=== PATIENT | male | born 1960 | race Caucasian/White ===

== ENCOUNTER → 2017-04-22 | Outpatient (REF) | payer BC, OTHER ==
[2017-04-22 11:35] LABS: ALBUMIN 3.9 GM/DL (3.2-5.2); ALBUMIN/GLOBULIN RATIO 1.05 (1.00-1.93); ALKALINE PHOSPHATASE 75 U/L (45-117); ALT/SGPT 38 U/L (12-78); ANION GAP 6 MEQ/L (8-16); AST/SGOT 20 U/L (15-37); BILIRUBIN,TOTAL 0.6 MG/DL (0.2-1.0); BLOOD UREA NITROGEN 21 MG/DL (7-18); CALCIUM LEVEL 9.4 MG/DL (8.5-10.1); CARBON DIOXIDE LEVEL 33 MEQ/L (21-32); CHLORIDE LEVEL 99 MEQ/L (98-107); CHOLESTEROL LEVEL 249 MG/DL (<200); CREATININE FOR GFR 1.08 MG/DL (0.70-1.30); GLOMERULAR FILTRATION RATE > 60.0 (>56); GLUCOSE, FASTING 263 MG/DL (70-105); POTASSIUM SERUM 3.9 MEQ/L (3.5-5.1); SODIUM LEVEL 138 MEQ/L (136-145); TOTAL PROTEIN 7.6 GM/DL (6.4-8.2); TRIGLYCERIDES LEVEL 446 MG/DL (<150)
== END ==
LOC: M SFHCCLAY 06:37
PROVIDERS: ATTEND Nurse Practitioner
DX: E11.8 Type 2 diabetes mellitus with unspecified complications (principal)

== ENCOUNTER → 2019-05-18 | Outpatient (REF) | payer BC ==
[2019-05-18 12:57] LABS: BLOOD UREA NITROGEN 11 MG/DL (7-18); CALCIUM LEVEL 8.5 MG/DL (8.5-10.1); CARBON DIOXIDE LEVEL 27 MEQ/L (21-32); CHLORIDE LEVEL 106 MEQ/L (98-107); CREATININE FOR GFR 0.91 MG/DL (0.70-1.30); GLOMERULAR FILTRATION RATE > 60.0 (>56); GLUCOSE, FASTING 142 MG/DL (70-100); MAGNESIUM LEVEL 1.6 MG/DL (1.8-2.4); PHOSPHORUS LEVEL 2.7 MG/DL (2.5-4.9); SODIUM LEVEL 143 MEQ/L (136-145)
== END ==
LOC: M LABDRAWC 11:18
PROVIDERS: ATTEND Internal Medicine
DX: Z00.00 Encounter for general adult medical examination without abnormal findings (principal)

== ENCOUNTER → 2019-05-18 | Outpatient (REF) | payer BC ==
[2019-05-18 12:41] LABS: ALBUMIN 2.8 GM/DL (3.2-5.2); ALT/SGPT 47 U/L (12-78); BILIRUBIN,DIRECT < 0.1 MG/DL (0.0-0.2); BILIRUBIN,TOTAL 0.3 MG/DL (0.2-1.0); CHOLESTEROL LEVEL 167 MG/DL (<200); CHOLESTEROL RISK RATIO 3.976 (<5); HDL CHOLESTEROL 42 MG/DL (>40); LDL CHOLESTEROL 92 MG/DL (<100); NON-HDL-C 125 MG/DL; TOTAL PROTEIN 6.9 GM/DL (6.4-8.2); TRIGLYCERIDES LEVEL 164 MG/DL (<150)
[2019-05-18 14:38] LABS: HEMOGLOBIN A1c 14.3 %
== END ==
LOC: M SFHCCLAY 07:06
PROVIDERS: ATTEND Family Medicine
DX: E11.8 Type 2 diabetes mellitus with unspecified complications (principal); E78.5 Hyperlipidemia, unspecified

== ENCOUNTER → 2019-05-24 | Outpatient (REF) | payer BC | LOC: M SMT 13:14 | PROVIDERS: ATTEND Urology | DX: R33.9 Retention of urine, unspecified (principal) ==

== ENCOUNTER → 2019-05-24 | Outpatient (CLI) | payer BC ==
[2019-05-26 00:08] LABS: PSA % FREE 12.4 % (.); PSA FREE 1.15 ng/mL; PSA TOTAL 9.3 ng/mL (0.0-4.0)
== END ==
LOC: M SMT 08:59
PROVIDERS: ATTEND Urology
DX: N40.0 Benign prostatic hyperplasia without lower urinary tract symptoms (principal)

== ENCOUNTER → 2019-06-21 | Outpatient (REF) | payer BC ==
[2019-06-21 11:42] LABS: BLOOD UREA NITROGEN 14 MG/DL (7-18); CALCIUM LEVEL 9.5 MG/DL (8.5-10.1); CARBON DIOXIDE LEVEL 28 MEQ/L (21-32); CHLORIDE LEVEL 107 MEQ/L (98-107); CREATININE FOR GFR 0.87 MG/DL (0.70-1.30); GLOMERULAR FILTRATION RATE > 60.0 (>56); GLUCOSE, FASTING 119 MG/DL (70-100); POTASSIUM SERUM 4.4 MEQ/L (3.5-5.1); SODIUM LEVEL 141 MEQ/L (136-145)
== END ==
LOC: M SFHCCLAY 08:28
PROVIDERS: ATTEND Family Medicine
DX: E11.8 Type 2 diabetes mellitus with unspecified complications (principal)

== ENCOUNTER → 2019-07-04 | Outpatient (CLI) | payer BC ==
--- NOTE | 2019-07-04 13:55 | REP ---
Prostate sonography: History: Elevated PSA. Urinary retention. Sonographic findings: Trans rectal prostate sonography demonstrates unremarkable seminal vesicles. Prostate gland is heterogeneously enlarged with calcifications and cystic changes noted. Glandular dimensions are measured at 5.5 x 4.3 x 6.1 cm with a calculated glandular volume of 76.4 ml. There is a hypoechoic area in the left posterior lateral apex 0.7 x 0.7 x 0.6 cm. Transrectal sonographic guidance is provided to Dr. Woodson who performed trans rectal ultrasound guided needle biopsy procedure . Electronically Signed by Julian Coker MD 07/04/2019 01:46 P
== END ==
LOC: M SMT PRO 08:52
PROVIDERS: ATTEND Urology
DX: R97.20 Elevated prostate specific antigen [PSA] (principal)
CPT/HCPCS: 76872; 76942; G0416

== ENCOUNTER → 2019-08-28 | Outpatient (REF) | payer BC ==
[2019-08-28 11:35] LABS: BLOOD UREA NITROGEN 18 MG/DL (7-18); CALCIUM LEVEL 9.3 MG/DL (8.5-10.1); CARBON DIOXIDE LEVEL 30 MEQ/L (21-32); CHLORIDE LEVEL 107 MEQ/L (98-107); CREATININE FOR GFR 1.06 MG/DL (0.70-1.30); GLOMERULAR FILTRATION RATE > 60.0 (>56); GLUCOSE, FASTING 122 MG/DL (70-100); POTASSIUM SERUM 4.6 MEQ/L (3.5-5.1); SODIUM LEVEL 141 MEQ/L (136-145)
[2019-08-28 12:32] LABS: HEMOGLOBIN A1c 7.7 %
== END ==
LOC: M SFHCCLAY 07:04
PROVIDERS: ATTEND Family Medicine
DX: E11.8 Type 2 diabetes mellitus with unspecified complications (principal)

== ENCOUNTER → 2019-12-29 | Outpatient (REF) | payer BC ==
[2019-12-29 12:42] LABS: BLOOD UREA NITROGEN 17 MG/DL (7-18); CALCIUM LEVEL 8.8 MG/DL (8.5-10.1); CARBON DIOXIDE LEVEL 31 MEQ/L (21-32); CHLORIDE LEVEL 105 MEQ/L (98-107); CREATININE FOR GFR 0.93 MG/DL (0.70-1.30); GLOMERULAR FILTRATION RATE > 60.0 (>56); GLUCOSE, FASTING 145 MG/DL (70-100); POTASSIUM SERUM 4.2 MEQ/L (3.5-5.1); SODIUM LEVEL 142 MEQ/L (136-145)
[2019-12-29 13:03] LABS: HEMOGLOBIN A1c 9.6 %
== END ==
LOC: M SFHCCLAY 07:05
PROVIDERS: ATTEND Family Medicine
DX: E11.8 Type 2 diabetes mellitus with unspecified complications (principal)

== ENCOUNTER 2020-02-12 09:09 | Observation (INO) | payer BC ==
[~2020-02-12] VITALS: Ht 165.1 cm; Wt 83.8 kg
[2020-02-12] MEDS ORDERED: ATOR80TA59 PO (09:26)
[2020-02-12] MEDS ORDERED: CARV6.25 PO (09:26)
[2020-02-12] MEDS ORDERED: INSULANT SC (09:26)
[2020-02-12] MEDS ORDERED: METF10004 PO (09:26)
[2020-02-12] MEDS ORDERED: FURO40TA2 PO (09:26)
[2020-02-12] MEDS ORDERED: AMLO10TA5 PO (09:26)
[2020-02-12] MEDS ORDERED: TAMS1CAP17 PO (09:26)
[2020-02-12] MEDS ORDERED: FINA5TAB2 PO (09:26)
[2020-02-12] MEDS ORDERED: INSUHUMDS SC (09:26)
[2020-02-12 09:49] LABS: BASO # 0.1 10^3/uL (0.0-0.2); BASO % 0.9 % (0.0-1.0); EOS # 0.2 10^3/uL (0.0-0.5); EOS % 2.1 % (0.0-3.0); HEMATOCRIT 40.2 % (42.0-52.0); HEMOGLOBIN 13.6 g/dl (13.5-17.5); LYMPH # 1.3 10^3/uL (1.5-5.0); LYMPH % 14.2 % (24.0-44.0); MEAN CORPUSCULAR HEMOGLOBIN 30.4 pg (27.0-33.0); MEAN CORPUSCULAR HGB CONC 33.8 g/dl (32.0-36.5); MEAN CORPUSCULAR VOLUME 89.9 fl (80.0-96.0); MONO # 0.5 10^3/uL (0.0-0.8); MONO % 5.4 % (0.0-5.0); NEUTROPHILS # 6.9 10^3/uL (1.5-8.5); PLATELET COUNT, AUTOMATED 353 10^3/uL (150-450); RED BLOOD COUNT 4.47 10^6/uL (4.30-6.10)
[2020-02-12 10:01] LABS: INR 0.95; PROTHROMBIN TIME 12.4 SECONDS (11.8-14.0)
[2020-02-12 10:02] LABS: PARTIAL THROMBOPLASTIN TIME 41.1 SECONDS (25.0-38.4)
[2020-02-12 10:13] LABS: ALBUMIN 3.5 GM/DL (3.2-5.2); ALT/SGPT 33 U/L (12-78); BILIRUBIN,DIRECT 0.2 MG/DL (0.0-0.2); BILIRUBIN,TOTAL 0.7 MG/DL (0.2-1.0); BLOOD UREA NITROGEN 22 MG/DL (7-18); CARBON DIOXIDE LEVEL 28 MEQ/L (21-32); CHLORIDE LEVEL 109 MEQ/L (98-107); CREATININE FOR GFR 0.93 MG/DL (0.70-1.30); GLOMERULAR FILTRATION RATE > 60.0 (>56); GLUCOSE, FASTING 81 MG/DL (70-100); POTASSIUM SERUM 4.2 MEQ/L (3.5-5.1); SODIUM LEVEL 144 MEQ/L (136-145); TOTAL PROTEIN 7.3 GM/DL (6.4-8.2)
[2020-02-12 10:35] LABS: CK-MB VALUE MASS 4.6 NG/ML (<3.6); CPK CREATINE PHOSPHOKINASE 364 U/L (39-308); MB/CK RELATIVE INDEX 1.26 (< OR =4); TROPONIN I 0.14 NG/ML (< 0.10)
--- NOTE | 2020-02-12 11:22 | REP ---
REASON FOR EXAM: Cough and dyspnea. There are no priors for comparison. The technique utilized in obtaining the radiograph has magnified the cardiac silhouette and accentuated the interstitial markings. The interstitial markings are diffusely increased. There are Michelle B lines present. There is a patchy opacity in the right lower lobe. There is mild left CP angle blunting. There is evidence of mild cardiomegaly accentuated by technique. The osseous structures are within normal limits. IMPRESSION: 1. Interstitial edema. 2. There is a patchy opacity in the right lower lobe. Asymmetric pulmonary edema versus concomitant right lower lobe pneumonia. Correlate clinically. 3. Small left pleural effusion. 4. Mild cardiomegaly accentuated by technique. Electronically Signed by Walter Walker DO 02/12/2020 11:28 A
--- NOTE | 2020-02-12 11:45 | REP ---
REASON: Pain and swelling. DEEP VENOUS ULTRASONOGRAPHY BILATERAL THIGHS, RULE OUT DVT: TECHNIQUE: Multiple ultrasonographic images of the deep venous structures of the thigh were obtained from the common femoral vein to the popliteal vein along with Doppler interrogation and color flow Doppler images. FINDINGS: There is no abnormal echogenic material seen within any of the visualized deep venous structures that would suggest acute thrombosis. Coaptation is unremarkable throughout. Doppler interrogation shows an expected response to respiratory variability and augmentation. The color flow images show what appears to be a normal vascular pattern throughout. IMPRESSION: There is no ultrasonographic evidence of deep venous thrombosis involving any of the visualized deep venous structures of the bilateral thighs, as described above.? Electronically Signed by Walter Walker DO 02/12/2020 12:50 P
[2020-02-12] MEDS ORDERED: MAALOX 30 ML SUSP *UDC PO PRN (12:00)
[2020-02-12] MEDS ORDERED: ACETAMINOPHEN TAB 650MG DOSE (2X325MG) PO PRN (12:00)
[2020-02-12] MEDS ORDERED: FUROSEMIDE 40MG/4ML VIAL (J1940) IV ONE ×2 (12:00→16:00)
[2020-02-12] MEDS ORDERED: MOM 30ML SUSPENSION UDC PO PRN (12:00)
[2020-02-12] MEDS ORDERED: DOXYCYCLINE HYCLATE 100 MG in D5W MINI-BAG PLUS 100 ML IV ONE (12:15)
[2020-02-12] MEDS ORDERED: cefTRIAXone SOD 1 GM in D5W MINI-BAG PLUS 50 ML IV ONE (12:15)
[2020-02-12] MEDS ORDERED: GLUCOSE 4GM CHEW TABLET PO PRN (12:15)
[2020-02-12] MEDS ORDERED: DEXTROSE 50% 50 ML SYRINGE IV PRN (12:15)
[2020-02-12] MEDS ORDERED: GLUCAGON INJ 1MG VIAL SC PRN (12:15)
[2020-02-12 12:24] LABS: D-DIMER QUANT 913.65 ng/ml (<500)
--- NOTE | 2020-02-12 13:10 | HPEPDOC ---
[facility] Medical History & Physical Date of Admission February 12, 2020 Date of Service: February 12, 2020 History and Physical CHIEF COMPLAINT: Dyspnea HISTORY OF PRESENT ILLNESS: Patient is a 59-year-old male with past medical history of cardiac disease, status post cardiac surgery when he was 5 years old, CAD status post [place] 7 years ago, status post 3 stents, currently following Dr. Wright, not dependent on oxygen, HTN, HLD, BPH require intermittent self cath, IDDM, presenting with worsening shortness of breath and lower extremity swelling. Symptoms started a few days ago, and became worse last night. He denies any fevers, he took his when necessary Lasix with minimal relief. 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 He does report cough associated with green sputum. He denies any headaches, changes in vision, chest pain, nausea, vomiting, abdominal pain. Prior to coming to ED, he did take a dose of 40mg Lasix. In the ED, patient was afebrile, his respiratory rate was 40, and started on 2 L nasal cannula. Labs include no leukocytosis, CBC grossly intact, CMP grossly intact, creatinine 0.93, BUN slightly elevated at 22, chloride slightly elevated at 109, troponin 1 is 0.14, proBNP 186, total creatinine kinase 364, d-dimer 913, will order CTA Chest. Chest x-ray reveals interstitial edema, small left pleural chest effusion, patchy right lobe opacity suggesting asymmetric pulmonary edema versus RLL pneumonia. Ultrasound of the lower extremities is not suggestive of DVT. Patient is not tachycardic. Patient was subsequently treated with Lasix 40 mg IV 1. He was empirically treated with ceftriaxone and doxycycline in the ED. ROS: 10 point review systems negative except per above. PMH: See above. PSH: See above. Family history: Father with CVD, mother breast CA, both Social history: No tobacco, occ alcohol, no illicits Medications: Reviewed Allergies: NKDA PHYSICAL EXAMINATION: VITAL SIGNS: Please see below. GENERAL: Patient male in some slight respiratory distress, able to speak in 4-5 word sentences, sitting up and leaning forward HEENT: Normocephalic, atraumatic, dry mucous membranes NECK: Supple CARDIOVASCULAR EXAMINATION: S1, S2 RESPIRATORY EXAMINATION: crackles throughout ABDOMINAL EXAMINATION: Soft, nontender, nondistended, positive bowel sounds EXTREMITIES: + edema SKIN: No rash NEUROLOGICAL EXAMINATION: awake PSYCHIATRIC EXAMINATION: Has capacity Assessment and plan: Patient is a 59-year-old male with past medical history of cardiac disease, status post cardiac surgery when he was 5 years old, CAD status post [place] 7 years ago, status post 3 stents, currently following Dr. Wright, not dependent on oxygen, HTN, HLD, BPH require intermittent self cath, IDDM, presenting with worsening shortness of breath and lower extremity swelling. Observation, telemetry. COVID screen negative. #Shortness of breath, consider acute on chronic CHF: Continue diuretics, also consider PE, patients d-dimer is elevated. Will follow-up on CTA. Well also repeat echo, consult cardiology, patient is known to Dr. Wright, well also empirically treat for CAP, continue ceftriaxone and doxycycline, will follow-up on lactic acid and pro-calcitonin levels #Elevated troponin, likely demand ischemia, well trend, if elevated, patient might have an NSTEMI, patient may require transfer to tertiary site #HTN: Continue home amlodipine 10 mg daily, carvedilol 6.25 twice a day #HLD: Continue home atorvastatin 80 mg daily #BPH: Continue home finasteride 5 mg daily and tamsulosin 0.05 mg daily at bedtime, bladder scan per nursing protocol, monitor input and output, allow for self catheterization if full bladder #IDDM: Continue 15 units of insulin glargine, home doses: 25U daily at bedtime, will increase accordingly, insulin sliding scale, hypoglycemic protocol, hold by mouth diabetic medications DVT ppx: Plan to start heparin gtt, if CTA positive for PE, otherwise will heparin 5000U SC 3 times a day Full code Dispo: home 02/13/2020 vs 02/14/20. Pending clinical presentation Vital Signs Vital Signs Date Time Temp Pulse Resp B/P (MAP) Pulse Ox O2 Delivery O2 Flow Rate FiO2 02/12/20 12:11 81 122/65 (84) 94 Nasal Cannula 2.0 02/12/20 09:20 95.0 40 Laboratory Data Labs 24H Laboratory Tests 2 02/12/20 09:28: Prothrombin Time 12.4, Prothromb Time International Ratio 0.95, Activated Partial Thromboplast Time 41.1H, D-Dimer, Quantitative 913.65H, [id number]-[id number]-Type Natriuretic Peptide 186H 02/12/20 09:30: Immature Granulocyte % (Auto) 0.4, Neutrophils (%) (Auto) 77.0H, Lymphocytes (%) (Auto) 14.2L, Monocytes (%) (Auto) 5.4H, Eosinophils (%) (Auto) 2.1, Basophils (%) (Auto) 0.9, Neutrophils # (Auto) 6.9, Lymphocytes # (Auto) 1.3L, Monocytes # (Auto) 0.5, Eosinophils # (Auto) 0.2, Basophils # (Auto) 0.1, Nucleated Red Blood Cells % (auto) 0.0, Anion Gap 7L, Glomerular Filtration Rate > 60.0, Calcium Level 9.0, Total Bilirubin 0.7, Direct Bilirubin 0.2, Aspartate Amino Transf (AST/SGOT) 21, Alanine Aminotransferase (ALT/SGPT) 33, Alkaline Phosphatase 79, Total Creatine Kinase 364H, Creatine Kinase MB 4.6H, Creatine Kinase MB Relative Index 1.26, Troponin I 0.14H, Total Protein 7.3, Albumin 3.5, Albumin/Globulin Ratio 0.92L 02/12/20 09:32: CBC/BMP Laboratory Tests 02/12/20 09:30 Microbiology Microbiology 02/12/20 Respiratory Virus Panel (PCR) (MARTY) - Final, Complete 02/12/20 Blood Culture, Received Pending Home Medications Scheduled Amlodipine Besylate (Amlodipine Besylate) 10 Mg Tablet, 10 MG PO DAILY Atorvastatin Calcium (Atorvastatin Calcium) 80 Mg Tablet, 80 MG PO DAILY Carvedilol (Carvedilol) 6.25 Mg Tablet, 6.25 MG PO BID Finasteride (Finasteride) 5 Mg Tablet, 5 MG PO DAILY Insulin Glargine (Lantus) 100 Unit/1 Ml Vial, 25 UNITS SC QHS Insulin Human Lispro (Humalog) 100 Unit/1 Ml Vial, 1 DOSE SC AC PER SLIDING SCALE Metformin HCl (Metformin HCl) 1,000 Mg Tablet, 1,000 MG PO BID Tamsulosin Hcl (Tamsulosin HCl) 0.4 Mg Capsule, 0.4 MG PO DAILY Scheduled PRN Furosemide (Furosemide) 40 Mg Tablet, 40 MG PO DAILY PRN for EDEMA Allergies Coded Allergies: No Known Allergies (Unverified , 02/12/20) A-FIB/CHADSVASC A-FIB History Current/History of A-Fib/PAF?: No MARYANN SOLER MD February 12, 2020 12:43
[2020-02-12] MEDS ORDERED: ISOVUE-370 76% 100ML VIAL As Ordered ONE (13:13)
[2020-02-12 14:02] VITALS: BP 138/77
--- NOTE | 2020-02-12 14:25 | REP ---
CT ANGIOGRAM CHEST: TECHNIQUE: Axial contrast enhanced images from the thoracic inlet to the upper abdomen using 100 mL Isovue-370 intravenous contrast material with multiplanar reformations. There is no CT evidence of pulmonary embolism. There is no thoracic aortic aneurysm or dissection. The heart is not significantly enlarged. There is no mediastinal, hilar, or chest wall lymphadenopathy. Scattered subcentimeter mediastinal lymph nodes are present. There are no pericardial effusion. There are moderate bilateral pleural effusions. There are patchy infiltrates in both lower lobes. There are degenerative changes of the spine. There is a 1 cm gallstone in the gallbladder. IMPRESSION: No CT evidence of pulmonary embolism or aortic dissection. Moderate bilateral pleural effusions. Patchy bibasilar atelectasis/infiltrate. Electronically Signed by Baljit Marquez MD 02/12/2020 02:28 P
--- NOTE | 2020-02-12 16:46 | ECGEPIP ---
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
[2020-02-12] MEDS: HumaLOG INSULIN (NovoLOG) PER UNIT SC SCH ×2 (17:08→20:48)
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
[2020-02-12] MEDS: ASPIRIN 81 MG ENTERIC TAB PO SCH (20:47)
[2020-02-12] MEDS: CARVedilol 6.25 MG TAB PO SCH (20:48)
[2020-02-12] MEDS: LOSARTAN 25 MG TAB PO SCH (20:48)
[2020-02-12] MEDS: HEPARIN SOD (PORCINE) 5000UNITS/ML VIAL (J1644 PER 1000UNITS) SQ SCH (20:49)
[2020-02-12] MEDS ORDERED: LEVEMIR (INSULIN DETEMIR) 1 UNITS/0.01ML SC SCH (21:00)
[2020-02-12 22:00] VITALS: BP 134/79
[2020-02-13] MEDS: FUROSEMIDE 40MG/4ML VIAL (J1940) IV SCH ×4 (00:07→17:29)
[2020-02-13] MEDS: DOXYCYCLINE HYCLATE 100 MG in D5W MINI-BAG PLUS 100 ML IV SCH ×2 (01:35→15:09)
[2020-02-13 03:44] LABS: MEAN CORPUSCULAR HEMOGLOBIN 29.7 pg (27.0-33.0); MEAN CORPUSCULAR HGB CONC 33.6 g/dl (32.0-36.5); MEAN CORPUSCULAR VOLUME 88.2 fl (80.0-96.0); PLATELET COUNT, AUTOMATED 301 10^3/uL (150-450); RED BLOOD COUNT 3.74 10^6/uL (4.30-6.10); WHITE BLOOD COUNT 6.8 10^3/uL (4.0-10.0)
[2020-02-13 03:49] LABS: HEMOGLOBIN 11.1 g/dl (13.5-17.5)
[2020-02-13 04:11] LABS: BLOOD UREA NITROGEN 23 MG/DL (7-18); CALCIUM LEVEL 7.9 MG/DL (8.5-10.1); CARBON DIOXIDE LEVEL 30 MEQ/L (21-32); CHLORIDE LEVEL 107 MEQ/L (98-107); CREATININE FOR GFR 1.11 MG/DL (0.70-1.30); GLOMERULAR FILTRATION RATE > 60.0 (>56); GLUCOSE, FASTING 154 MG/DL (70-100); POTASSIUM SERUM 3.7 MEQ/L (3.5-5.1); SODIUM LEVEL 143 MEQ/L (136-145); TROPONIN I 0.15 NG/ML (< 0.10)
[2020-02-13] MEDS: HEPARIN SOD (PORCINE) 5000UNITS/ML VIAL (J1644 PER 1000UNITS) SQ SCH ×3 (05:55→20:31)
[2020-02-13 06:00] VITALS: BP 108/58
[2020-02-13] MEDS: ASPIRIN 81 MG ENTERIC TAB PO SCH (07:59)
[2020-02-13] MEDS: HumaLOG INSULIN (NovoLOG) PER UNIT SC SCH ×4 (07:59→20:29)
[2020-02-13] MEDS: FINASTERIDE 5 MG TAB PO SCH (08:00)
[2020-02-13] MEDS: ATORVASTATIN 20 MG TAB PO SCH (08:00)
[2020-02-13] MEDS: TAMSULOSIN 0.4 MG CAP PO SCH (08:02)
[2020-02-13] MEDS: CARVedilol 6.25 MG TAB PO SCH ×2 (08:02→20:30)
[2020-02-13] MEDS ORDERED: POTASSIUM CHLORIDE 10 MEQ SR TABLET PO ONE (08:15)
--- NOTE | 2020-02-13 08:26 | IPN ---
DATE: 02/13/2020 Mr. Tucker tells me that he is feeling much improved compared to yesterday. He believes that his dyspnea is at least 75% better. Denies any chest discomfort and he was able to sleep without paroxysmal nocturnal dyspnea (PND). We talked some more about his urinary obstructive symptoms. Today, he told me that in the last few weeks he has not been straight cathing himself regularly because he felt that he was able to urinate on his own. But then when he is here and he straight catheters himself after he already urinated, there is a considerable amount of residual urine. This certainly could have contributed to his presentation. Blood pressure this morning 108/58, has been in 130s overnight. He is afebrile. Saturation 92% on room air. Fluid balance yesterday was recorded about 700 negative. He already made 1800 mL of urine today. Weight was recorded as 86.5 kg today. He is alert, oriented and appropriate. 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 Lungs are relatively clear. The air movement though is still fair and there are somewhat diminished breath sounds over both bases, but only not more than maybe one-fifth of the lung batista. Heart exam somewhat muffled heart sounds, but regular rhythm without obvious gallop, rub or murmur. Abdomen is still very protuberant. I believe there is a small amount of ascites present. Extremities still have 3+ edema to his knees. Neurologically, he is intact. Laboratories: WBC count 6.8, hemoglobin 11.1, hematocrit 33, platelet count 301,000. Basic metabolic panel reveals sodium 143, potassium 3.7, BUN 23, creatinine 1.1, glucose 154. Troponin trend has been relatively flat. He presented yesterday with 0.12 and then at 9:00 p.m. was 0.14 and at 3:30 this morning was 0.15. An echocardiogram has been pending. ASSESSMENT/PLAN: Mr. Tucker is a 59-year-old man who presented with fluid retention and congestive heart failure. The patient reported weight gain of approximately 20 pounds over the last 3 weeks. There is evidence for bilateral pleural effusions on chest x-ray and I do believe that the infiltrates described on the chest x-ray are more likely related to congestive heart failure than true infection. Surprisingly, his N terminal pro BNP was relatively low and I do not have obvious explanation for this finding other than his obesity. It is possible that his urinary obstructive symptoms contributed to his presentation. He has been straight cathing himself for years, but said in the last few weeks he felt that he was urinating well and consequently he did not need to cath himself. We talked about this again today because it seems like that he has considerable postvoiding residual volume of urine in his bladder. As far as the management of heart failure is concerned, he is known to have approximately moderate left ventricular systolic dysfunction, but the left ventricular ejection fraction (LVEF) has not been evaluated in several years. An echocardiogram is still pending. Nevertheless, assuming that he has acute on chronic systolic heart failure, I made some medication changes. So far, his creatinine has bumped only slightly since yesterday, which I think is in part due to administration of IV contrast, but because of that I am not going to advance his medications. He is slightly hypokalemic and consequently I am going to replenish his potassium with single supplement today. Depending on his blood work tomorrow, we may need to give him either spironolactone or advance the dose of angiotensin receptor jhon (ARB) or even use angiotensin receptor neprilysin inhibitor (ARNI). Fortunately, he is free of any arrhythmic events.
[2020-02-13] MEDS ORDERED: amLODIPine 10 MG TAB PO SCH (09:00)
[2020-02-13] MEDS ORDERED: FUROSEMIDE 40 MG TAB PO SCH (09:00)
--- NOTE | 2020-02-13 09:04 | IPNPDOC ---
Date Seen The patient was seen on 02/13/20. Progress Note SUBJECTIVE: No overnight events, pending echo, discussed with cardiology, will increase his furosemide to 40 mg every 6 hours, DC amlodipine, pending on presentation may start patient on spironolactone versus ACEI vs ARB. We'll monitor electrolytes with increase of diuretics dosing. OBJECTIVE PHYSICAL EXAMINATION: VITAL SIGNS: Please see below. GENERAL: Patient male in some slight respiratory distress, able to speak in 4-5 word sentences, sitting up and leaning forward HEENT: Normocephalic, atraumatic, dry mucous membranes NECK: Supple CARDIOVASCULAR EXAMINATION: S1, S2 RESPIRATORY EXAMINATION: crackles throughout ABDOMINAL EXAMINATION: Soft, nontender, nondistended, positive bowel sounds EXTREMITIES: + edema SKIN: No rash NEUROLOGICAL EXAMINATION: awake PSYCHIATRIC EXAMINATION: Has capacity Assessment and plan: Patient is a 59-year-old male with past medical history of cardiac disease, status post cardiac surgery when he was 5 years old, CAD status post [place] 7 years ago, status post 3 stents, currently following Dr. Wright, not dependent on oxygen, HTN, HLD, BPH require intermittent self cath, IDDM, presenting with worsening shortness of breath and lower extremity swelling. Observation, telemetry. COVID screen negative. #Shortness of breath, consider acute on chronic CHF, d-dimer is elevated, CTA chest neg -Echo f/u, cardiology consult, patient is known to Dr. Wright, tx CAP, continue ceftriaxone and doxycycline -Increased diuresis, follow-up with cardiology recommendations, amlodipine DC'd -will follow-up on lactic acid normal, and pro-calcitonin level pending #Elevated troponin, likely demand ischemia, stable #HTN: Continue home amlodipine 10 mg daily, carvedilol 6.25 twice a day #HLD: Continue home atorvastatin 80 mg daily #BPH: Continue home finasteride 5 mg daily and tamsulosin 0.05 mg daily at bedtime, bladder scan per nursing protocol, monitor input and output, allow for self catheterization if full bladder #IDDM: Continue 15 units of insulin glargine, home doses: 25U daily at bedtime, will increase accordingly, insulin sliding scale, hypoglycemic protocol, hold by mouth diabetic medications DVT ppx: Plan to start heparin gtt, if CTA positive for PE, otherwise will heparin 5000U SC 3 times a day Full code Dispo: home earliest 02/14/20. Pending clinical presentation VS, I&O, 24H, [facility] Vital Signs/I&O Vital Signs Date Time Temp Pulse Resp B/P (MAP) Pulse Ox O2 Delivery O2 Flow Rate FiO2 02/13/20 08:02 92 134/78 02/13/20 06:00 98.2 19 92 Room Air 02/12/20 12:11 2.0 I&O- Last 24 Hours up to 6 AM 02/13/20 06:00 Intake Total 2010 ml Output Total 3450 ml Balance -1440 ml Laboratory Data 24H LABS Laboratory Tests 2 02/12/20 09:28: Prothrombin Time 12.4, Prothromb Time International Ratio 0.95, Activated Partial Thromboplast Time 41.1H, D-Dimer, Quantitative 913.65H, EZ-Ihi-K-Type Natriuretic Peptide 186H 02/12/20 09:30: Immature Granulocyte % (Auto) 0.4, Neutrophils (%) (Auto) 77.0H, Lymphocytes (%) (Auto) 14.2L, Monocytes (%) (Auto) 5.4H, Eosinophils (%) (Auto) 2.1, Basophils (%) (Auto) 0.9, Neutrophils # (Auto) 6.9, Lymphocytes # (Auto) 1.3L, Monocytes # (Auto) 0.5, Eosinophils # (Auto) 0.2, Basophils # (Auto) 0.1, Nucleated Red Blood Cells % (auto) 0.0, Anion Gap 7L, Glomerular Filtration Rate > 60.0, Calcium Level 9.0, Total Bilirubin 0.7, Direct Bilirubin 0.2, Aspartate Amino Transf (AST/SGOT) 21, Alanine Aminotransferase (ALT/SGPT) 33, Alkaline Phosphatase 79, Total Creatine Kinase 364H, Creatine Kinase MB 4.6H, Creatine Kinase MB Relative Index 1.26, Troponin I 0.14H, Total Protein 7.3, Albumin 3.5, Albumin/Globulin Ratio 0.92L 02/12/20 09:32: Coronavirus (COVID-19)(PCR) NEGATIVE 02/12/20 12:45: 02/12/20 15:29: Lactic Acid Level 1.6, Troponin I 0.12H 02/12/20 16:58: Bedside Glucose (Misc Panel) 230H 02/12/20 20:02: Bedside Glucose (Misc Panel) 231H 02/12/20 21:32: Troponin I 0.14H 02/13/20 03:32: Nucleated Red Blood Cells % (auto) 0.0, Anion Gap 6L, Glomerular Filtration Rate > 60.0, Calcium Level 7.9L, Troponin I 0.15H 02/13/20 06:21: Bedside Glucose (Misc Panel) 123H CBC/BMP Laboratory Tests 02/12/20 09:30 02/13/20 03:32 Microbiology Microbiology 02/12/20 Blood Culture, Received Pending 02/12/20 Respiratory Virus Panel (PCR) ([facility]) - Final, Complete 02/12/20 Blood Culture, Received Pending MARYANN SOLER MD February 13, 2020 09:01
[2020-02-13] MEDS ORDERED: cefTRIAXone SOD 1 GM in D5W MINI-BAG PLUS 50 ML IV SCH (13:00)
[2020-02-13 14:00] VITALS: BP 135/77
[2020-02-13] MEDS: LOSARTAN 25 MG TAB PO SCH (20:30)
[2020-02-13] MEDS ORDERED: LEVEMIR (INSULIN DETEMIR) 1 UNITS/0.01ML SC SCH (21:00)
[2020-02-13 22:00] VITALS: BP 132/77
--- NOTE | 2020-02-13 22:59 | ECHO ---
DATE OF PROCEDURE: 02/13/2020 REFERRING PHYSICIAN: Jennifer Alvarado MD INDICATION: Congestive heart failure. Height 165 cm, weight 82 kg. DIMENSIONS: IVS: 1.0 LV: 5.4 LVPW: 1.1 LA: 4.1 Aorta: 3.3 IVC: 1.5 Mitral E wave velocity: 111 A wave: 81 E prime septal: 6.7 E prime lateral: 7.5 FINDINGS: The study is of rather fair technical quality with challenging visualization. The patient is in sinus rhythm. Left ventricle is normal size. There appears to be subtle wall motion abnormality involving distal septum, distal anterior wall and apex. These segments are mildly hypokinetic. Remaining left ventricular systolic segment have normal contractility. I estimate overall ejection fraction (EF) around 45-50%. Right ventricle appears grossly normal. Left atrium is mildly enlarged. Right atrium was poorly seen. Aortic valve appears normal. It is tricuspid and has normal mobility. Same applies for mitral valve. Tricuspid valve appears normal based on limited views. Pulmonic valve was not well seen. No pericardial effusion is noted. Inferior vena cava has normal caliber. Aortic root appears normal. Aortic arch were not well seen. Doppler interrogation of aortic valve reveals no stenosis or insufficiency. There is mild mitral insufficiency. Tricuspid valve is functionally competent. Mitral inflow pattern and tissue Doppler imaging of mitral annulus revealed grade 2 diastolic dysfunction suggestive of elevated left ventricular end diastolic pressure (LVEDP). CONCLUSIONS: 1. Study is of limited technical quality, the patient is in sinus rhythm with wide QRS complex. 2. Normal left ventricular (LV) size with subtle wall motion abnormalities as noted above and overall left ventricular ejection fraction (LVEF) approximately 45-50%. Likely grade 2 diastolic dysfunction. 3. No hemodynamically significant valvular disease. 4. Suggestive of normal central venous pressure. 5. Unable to estimate pulmonary artery pressure. COMMENT: Subacute bacterial endocarditis (SBE) prophylaxis is not recommended.
[2020-02-14] MEDS: FUROSEMIDE 40MG/4ML VIAL (J1940) IV SCH ×2 (00:38→05:57)
[2020-02-14] MEDS: DOXYCYCLINE HYCLATE 100 MG in D5W MINI-BAG PLUS 100 ML IV SCH (01:30)
[2020-02-14] MEDS: HEPARIN SOD (PORCINE) 5000UNITS/ML VIAL (J1644 PER 1000UNITS) SQ SCH (05:57)
[2020-02-14 06:00] VITALS: BP 142/80
[2020-02-14 06:09] LABS: HEMATOCRIT 35.4 % (42.0-52.0); HEMOGLOBIN 11.9 g/dl (13.5-17.5); MEAN CORPUSCULAR HEMOGLOBIN 29.8 pg (27.0-33.0); MEAN CORPUSCULAR HGB CONC 33.6 g/dl (32.0-36.5); MEAN CORPUSCULAR VOLUME 88.7 fl (80.0-96.0); PLATELET COUNT, AUTOMATED 323 10^3/uL (150-450); RED BLOOD COUNT 3.99 10^6/uL (4.30-6.10); WHITE BLOOD COUNT 6.7 10^3/uL (4.0-10.0)
[2020-02-14 06:33] LABS: BLOOD UREA NITROGEN 22 MG/DL (7-18); CALCIUM LEVEL 8.6 MG/DL (8.5-10.1); CARBON DIOXIDE LEVEL 30 MEQ/L (21-32); CHLORIDE LEVEL 108 MEQ/L (98-107); CREATININE FOR GFR 1.09 MG/DL (0.70-1.30); GLOMERULAR FILTRATION RATE > 60.0 (>56); GLUCOSE, FASTING 107 MG/DL (70-100); POTASSIUM SERUM 3.8 MEQ/L (3.5-5.1); SODIUM LEVEL 145 MEQ/L (136-145)
[2020-02-14] MEDS: HumaLOG INSULIN (NovoLOG) PER UNIT SC SCH (07:30)
[2020-02-14] MEDS ORDERED: FUROSEMIDE 40 MG TAB PO SCH (09:00)
[2020-02-14] MEDS: TAMSULOSIN 0.4 MG CAP PO SCH (09:14)
[2020-02-14] MEDS: ASPIRIN 81 MG ENTERIC TAB PO SCH (09:14)
[2020-02-14] MEDS: FINASTERIDE 5 MG TAB PO SCH (09:14)
[2020-02-14 09:15] VITALS: BP 132/70
[2020-02-14] MEDS: ATORVASTATIN 20 MG TAB PO SCH (09:15)
[2020-02-14] MEDS: CARVedilol 6.25 MG TAB PO SCH (09:15)
--- NOTE | 2020-02-14 09:43 | IPN ---
DATE OF SERVICE: 02/14/2020 Mr. Tucker is feeling much better. He feels that his breathing is basically back to his normal. Peripheral edema has diminished, as well. He did not have any arrhythmias on telemetry. Blood pressure 142/80. Heart rate in 80s. He is afebrile. Saturation 94% on room air. Fluid balance was negative 1900 yesterday, and he already made over 2 liters of urine today. Weight was recorded as 83.8 kg, which is 4.5 kg down since admission. He is alert and oriented and appropriate. His jugular venous pressure (JVP) is not high. Lungs are clear. Heart: Reveals regular rhythm. No gallop, murmur, or rub is noted. Abdomen remains obese but soft. Extremities are down to about 1-2+ edema to his knees. LABORATORIES: Complete blood count (CBC): WBC count 6.7, hemoglobin 11.9, hematocrit 34.5, platelet count 323,000. Basic metabolic panel is essentially normal. Potassium 3.8, BUN 22, creatinine 1.1, and glucose 107 ASSESSMENT AND PLAN: Mr. Tucker is 59-year-old man with remote history of coronary interventions who presented with congestive heart failure. The reason for the acute exacerbation is somewhat uncertain. He reports gradual onset of symptoms over several weeks. Probably in part was that he was not self-catheterizing himself as regularly as previously, and he also was not weighing himself. I talked to him extensively today about management of heart failure, in the long run including sodium and fluid restrictions and daily weighing himself. Any time he gains more than 4 pounds over his baseline, he should double the dose of diuretics; and if it does not normalize his weight within 48 hours, to call my office. He had an echocardiogram yesterday that revealed relatively preserved left ventricle (LV) systolic function with ejection fraction (EF) around 50%. This is certainly a pleasant surprise. As far as the long-term management is concerned, I switch him from amlodipine to losartan, which is more beneficial if only because he is diabetic; and I would discharge him on double of his current dose at 50 mg at night. I think that he can be discharged home on 40 mg of furosemide twice a day, and I plan to see him in followup next week. The remaining medication can be left unchanged.
--- NOTE | 2020-02-14 10:13 | DS.PDOC ---
Discharge Summary General Date of Admission February 12, 2020 at 09:10 Date of Discharge 02/14/20 Discharge Summary PROCEDURES PERFORMED DURING STAY: Echo 02/13/20. ADMITTING DIAGNOSES: 1. CHF exacerbation. DISCHARGE DIAGNOSES: 1. EHF exacerbation and pneumonia. COMPLICATIONS/CHIEF COMPLAINT: Congestive Heart Failure,Lower Extremity Edema. HISTORY OF PRESENT ILLNESS/HOSPITAL COURSE: Patient is a 59-year-old male with past medical history of cardiac disease, status post cardiac surgery when he was 5 years old, CAD status post [place] 7 years ago, status post 3 stents, currently following Dr. Wright, not dependent on oxygen, HTN, HLD, BPH require intermittent self cath, IDDM, presenting with wors ening shortness of breath and lower extremity swelling.. He was admitted for CHF exacerbation and pneumonia. COVID screen negative. D-dimer was elevated and subsequent CTA chest was negative for PE. Cardiology was consult. During his hospitalization, patient was placed on Lasix 40 mg IV every 6 hours, which improves his symptoms. There was a repeat echo performed and found to have an EF of 50%, with diastolic type II dysfunction. She was educated on fluid restriction, daily weight, to note if he gains more than 4 pounds over his baseline, he should double the dose of his diuretics, and if it is not resolved within 48 hours to call cardiology. His diuretics will be increased to Lasix 40 mg twice a day by mouth, amlodipine was stopped and changed to losartan 50 mg daily at bedtime. Recommend patient is to follow-up with cardiology in 1 week, no other medication changes. Patient was also found to have CAP which likely contributed to the elevated d-dimer. Patient will be discharged on antibiotic course. Patient is also to follow-up with his PCP in 1 week. He was noted to have known urinary incontinence, has follow-up with urology as an outpatient. All questions were answered. PHYSICAL EXAMINATION ON DISCHARGE: VITAL SIGNS: Please see below. GENERAL: Patient male in some slight respiratory distress, able to speak in full sentences without difficulty HEENT: Normocephalic, atraumatic, dry mucous membranes NECK: Supple CARDIOVASCULAR EXAMINATION: S1, S2 RESPIRATORY EXAMINATION: crackles throughout ABDOMINAL EXAMINATION: Soft, nontender, nondistended, positive bowel sounds EXTREMITIES: + edema SKIN: No rash NEUROLOGICAL EXAMINATION: awake PSYCHIATRIC EXAMINATION: Has capacity DISCHARGE CONDITION: Stable. TIME SPENT ON DISCHARGE: 32 minutes. Vital Signs/I&Os Vital Signs Date Time Temp Pulse Resp B/P (MAP) Pulse Ox O2 Delivery O2 Flow Rate FiO2 02/14/20 09:15 93 132/70 02/14/20 06:00 98.9 18 94 Room Air 02/12/20 12:11 2.0 I&O- Last 24 Hours up to 6 AM 02/14/20 06:00 Intake Total 1025 ml Output Total 4330 ml Balance -3305 ml Laboratory Data Labs 24H Laboratory Tests 2 02/13/20 11:42: Bedside Glucose (Misc Panel) 134H 02/13/20 16:40: Bedside Glucose (Misc Panel) 229H 02/13/20 20:10: Bedside Glucose (Misc Panel) 241H 02/14/20 05:53: Nucleated Red Blood Cells % (auto) 0.0, Anion Gap 7L, Glomerular Filtration Rate > 60.0, Calcium Level 8.6 CBC/BMP Laboratory Tests 02/14/20 05:53 FSBS Laboratory Tests Test 02/13/20 11:42 02/13/20 16:40 02/13/20 20:10 Range/Units Bedside Glucose (Misc Panel) 134 229 241 70-105 MG/DL Microbiology Microbiology 02/13/20 Blood Culture, Received Pending 02/13/20 Blood Culture, Received Pending 02/12/20 Blood Culture - Preliminary, Resulted No growth after 24 hours . All specim... 02/12/20 Respiratory Virus Panel (PCR) ([facility]) - Final, Complete 02/12/20 Blood Culture - Preliminary, Resulted Discharge Medications Scheduled Amlodipine Besylate (Amlodipine Besylate) 10 Mg Tablet, 10 MG PO DAILY, (Reported) Atorvastatin Calcium (Atorvastatin Calcium) 80 Mg Tablet, 80 MG PO DAILY, (Reported) Carvedilol (Carvedilol) 6.25 Mg Tablet, 6.25 MG PO BID, (Reported) Finasteride (Finasteride) 5 Mg Tablet, 5 MG PO DAILY, (Reported) Insulin Glargine (Lantus) 100 Unit/1 Ml Vial, 25 UNITS SC QHS, (Reported) Insulin Human Lispro (Humalog) 100 Unit/1 Ml Vial, 1 DOSE SC AC, (Reported) PER SLIDING SCALE Metformin HCl (Metformin HCl) 1,000 Mg Tablet, 1,000 MG PO BID, (Reported) Tamsulosin Hcl (Tamsulosin HCl) 0.4 Mg Capsule, 0.4 MG PO DAILY, (Reported) Scheduled PRN Furosemide (Furosemide) 40 Mg Tablet, 40 MG PO DAILY PRN for EDEMA, (Reported) Allergies Coded Allergies: No Known Allergies (Unverified , 02/12/20) MARYANN SOLER MD February 14, 2020 10:07
[2020-02-14] MEDS ORDERED: LOSA50TA88 PO (10:20)
[2020-02-14] MEDS ORDERED: FURO40TA2 PO (10:20)
[2020-02-14] MEDS ORDERED: CEFD300CAP PO (10:20)
[2020-02-14] MEDS ORDERED: ASPI81TA85 PO (10:21)
[2020-02-14] MEDS ORDERED: DOXY-350 PO (10:21)
[2020-02-14] MEDS ORDERED: LOSARTAN 50MG TABLET PO SCH (21:00)
== END 2020-02-14 12:30 | disposition home or self-care (01) ==
LOC: M ED 09:09 → EDBD 09:09 → M ED INP 09:10 → ENRESERV 13:05 → M MSPAV 14:02
PROVIDERS: ADMIT Family Medicine; ATTEND Family Medicine
DX: I50.9 Heart failure, unspecified (principal); J18.9 Pneumonia, unspecified organism; R60.0 Localized edema; E11.9 Type 2 diabetes mellitus without complications; I25.10 Atherosclerotic heart disease of native coronary artery without angina pectoris; I25.2 Old myocardial infarction; I11.0 Hypertensive heart disease with heart failure; Z98.61 Coronary angioplasty status; E78.49 Other hyperlipidemia; N40.0 Benign prostatic hyperplasia without lower urinary tract symptoms; Z79.84 Long term (current) use of oral hypoglycemic drugs; Z79.4 Long term (current) use of insulin; Z79.899 Other long term (current) drug therapy
CPT/HCPCS: 36415; 71045; 71275; 80048; 80076; 82550; 82553; 83605; 83880; 84145; 84484; 85025; 85027; 85379; 85610; 85730; 87040; 87077; 87186; 87486; 87581; 87633; 87798; 93005; 93041; 93306; 93970; 94760; 96365; 96366; 96367; 96375; 96376; 99285; J0696; J1644; J1940; Q9967; U0002

== ENCOUNTER → 2020-03-21 | Outpatient (REF) | payer BC ==
[~2020-03-21] MED LIST: AMLO10TA5 PO; ASPI81TA85 PO; ATOR80TA59 PO; CARV6.25 PO; CEFD300CAP PO; DOXY-350 PO; FINA5TAB2 PO; FURO40TA2 PO; INSUHUMDS SC; INSULANT SC; LOSA50TA88 PO; METF10004 PO; TAMS1CAP17 PO
[2020-03-21 12:07] LABS: HEMOGLOBIN A1c 7.6 %
[2020-03-21 12:22] LABS: BLOOD UREA NITROGEN 27 MG/DL (7-18); CALCIUM LEVEL 9.1 MG/DL (8.5-10.1); CARBON DIOXIDE LEVEL 30 MEQ/L (21-32); CHLORIDE LEVEL 106 MEQ/L (98-107); CREATININE FOR GFR 1.16 MG/DL (0.70-1.30); GLOMERULAR FILTRATION RATE > 60.0 (>56); GLUCOSE, FASTING 180 MG/DL (70-100); POTASSIUM SERUM 5.2 MEQ/L (3.5-5.1); SODIUM LEVEL 140 MEQ/L (136-145)
== END ==
LOC: M SFHCCLAY 07:19
PROVIDERS: ATTEND Family Medicine
DX: E11.8 Type 2 diabetes mellitus with unspecified complications (principal)

== ENCOUNTER → 2020-04-10 | Outpatient (REF) | payer BC ==
[~2020-04-10] MED LIST changes: -AMLO10TA5 PO; +AMLO1TAB25 PO; -ASPI81TA85 PO; +ASPI81TA86 PO
[2020-04-10 16:58] LABS: BLOOD UREA NITROGEN 19 MG/DL (7-18); CALCIUM LEVEL 8.4 MG/DL (8.5-10.1); CARBON DIOXIDE LEVEL 26 MEQ/L (21-32); CHLORIDE LEVEL 110 MEQ/L (98-107); CHOLESTEROL LEVEL 125 MG/DL (<200); CHOLESTEROL RISK RATIO 3.906 (<5); CREATININE FOR GFR 1.04 MG/DL (0.70-1.30); GLOMERULAR FILTRATION RATE > 60.0 (>56); GLUCOSE, FASTING 184 MG/DL (70-100); HDL CHOLESTEROL 32 MG/DL (>40); LDL CHOLESTEROL 61 MG/DL (<100); NON-HDL-C 93 MG/DL; SODIUM LEVEL 142 MEQ/L (136-145); TRIGLYCERIDES LEVEL 160 MG/DL (<150)
== END ==
LOC: M LABDRAWC 15:50
PROVIDERS: ATTEND Physician Assistant
DX: E78.2 Mixed hyperlipidemia (principal); I25.5 Ischemic cardiomyopathy

== ENCOUNTER → 2020-09-02 | Outpatient (REF) | payer BC | LOC: M SFHCCLAY 12:05 | PROVIDERS: ATTEND Family Medicine | DX: Z20.828 Contact with and (suspected) exposure to other viral communicable diseases (principal); J06.9 Acute upper respiratory infection, unspecified ==

== ENCOUNTER → 2020-10-29 | Outpatient (REF) | payer BC ==
[2020-10-29 12:18] LABS: BLOOD UREA NITROGEN 39 MG/DL (7-18); CALCIUM LEVEL 9.9 MG/DL (8.5-10.1); CARBON DIOXIDE LEVEL 29 MEQ/L (21-32); CHLORIDE LEVEL 98 MEQ/L (98-107); CHOLESTEROL LEVEL 167 MG/DL (<200); GLOMERULAR FILTRATION RATE 55.4 (>56); GLUCOSE, FASTING 271 MG/DL (70-100); HDL CHOLESTEROL 33 MG/DL (>40); POTASSIUM SERUM 5.4 MEQ/L (3.5-5.1); SODIUM LEVEL 135 MEQ/L (136-145); TRIGLYCERIDES LEVEL 439 MG/DL (<150)
[2020-10-29 12:19] LABS: NON-HDL-C 134 MG/DL
[2020-10-29 12:46] LABS: CREATININE, URINE 83.4 MG/DL; MAU/CREAT RATIO 721.8 MCG/MG (0.0-30.0)
[2020-10-29 16:26] LABS: HEMOGLOBIN A1c 13.3 %
== END ==
LOC: M SFHCCLAY 08:02
PROVIDERS: ATTEND Family Medicine
DX: E11.8 Type 2 diabetes mellitus with unspecified complications (principal)

== ENCOUNTER → 2021-08-18 | Outpatient (CLI) | payer BC ==
--- NOTE | 2021-08-18 18:01 | REPVR ---
PROCEDURE INFORMATION: Exam: CT Maxillofacial Without Contrast, Sinus Exam date and time: 08/18/2021 5:26 PM Age: 61 years old Clinical indication: Sinusitis; Chronic; Additional info: Chronic sinusitis TECHNIQUE: Imaging protocol: CT Maxillofacial without contrast. Focus on the sinuses. Radiation optimization: All CT scans at this facility use at least one of these dose optimization techniques: automated exposure control; mA and/or kV adjustment per patient size (includes targeted exams where dose is matched to clinical indication); or iterative reconstruction. COMPARISON: No relevant prior studies available. FINDINGS: Frontal sinuses: Minimal mucoperiosteal thickening medially in the floor the left frontal air cell. No air-fluid levels. Ethmoid air cells: Normal. No air-fluid levels. Sphenoid sinuses: Normal. No air-fluid levels. Maxillary sinuses: Mucoperiosteal thickening in the left maxillary antrum. No air-fluid level. Right maxillary antrum is clear. Both ostiomeatal complexes are patent however the left is narrowed by mucoperiosteal thickening. Mal Nasal cavity/Septum: Unremarkable. Orbital cavity: The orbits are unremarkable. Bones/joints: There is no thickening and sclerosis of the bony margins of the paranasal sinuses to suggest chronic sinusitis. Soft tissues: Unremarkable. Brain: The portion of the brain included on the examination is unremarkable. Vasculature: Atherosclerosis. IMPRESSION: Mild mucoperiosteal thickening in the left maxillary antrum. There are no air-fluid levels in the paranasal sinuses and no bony sclerosis or thickening of the barfield of the air cells to suggest chronic paranasal sinusitis. Both ostiomeatal complexes are patent with narrowing on the left due to mucoperiosteal thickening. Electronically signed by: Zuleyka Suh On 08/18/2021 18:01:01 PM
== END ==
LOC: M RAD 17:08
PROVIDERS: ATTEND Otolaryngology
DX: J32.9 Chronic sinusitis, unspecified (principal)

== ENCOUNTER → 2021-10-28 | Outpatient (REF) | payer BC ==
[~2021-10-28] MED LIST changes: +LOSA50TA28 PO; -LOSA50TA88 PO
== END ==
LOC: M SFHCCLAY 09:36
PROVIDERS: ATTEND Family Medicine
DX: J34.89 Other specified disorders of nose and nasal sinuses (principal); R05.9 Cough, unspecified

== ENCOUNTER → 2022-04-23 | Outpatient (REF) | payer BC ==
[2022-04-23 12:24] LABS: BLOOD UREA NITROGEN 21 MG/DL (7-18); CALCIUM LEVEL 9.6 MG/DL (8.8-10.2); CARBON DIOXIDE LEVEL 33 MEQ/L (21-32); CHLORIDE LEVEL 98 MEQ/L (98-107); CHOLESTEROL LEVEL 146 MG/DL (<200); CHOLESTEROL RISK RATIO 4.055 (<5); CREATININE FOR GFR 1.16 MG/DL (0.70-1.30); GLOMERULAR FILTRATION RATE > 60.0 (>49); GLUCOSE, FASTING 389 MG/DL (70-100); HDL CHOLESTEROL 36 MG/DL (>40); LDL CHOLESTEROL 45 MG/DL (<100); NON-HDL-C 110 MG/DL; POTASSIUM SERUM 4.9 MEQ/L (3.5-5.1); SODIUM LEVEL 134 MEQ/L (136-145); TRIGLYCERIDES LEVEL 327 MG/DL (<150)
[2022-04-23 12:31] LABS: HEMOGLOBIN A1c 13.3 %
[2022-04-23 13:05] LABS: CREATININE, URINE 36.9 MG/DL; MAU/CREAT RATIO 2173.4 MCG/MG (0.0-30.0)
== END ==
LOC: M SFHCCLAY 07:06
PROVIDERS: ATTEND Family Medicine
DX: E11.8 Type 2 diabetes mellitus with unspecified complications (principal)

== ENCOUNTER 2022-07-02 13:22 | Inpatient (IN) | payer BC ==
[~2022-07-02] VITALS: Ht 162.6 cm; Wt 78.8 kg
[2022-07-02 14:44] LABS: RSV AMPLIFICATION NEGATIVE (NEGATIVE)
[2022-07-02 15:35] LABS: BASO # 0.1 10^3/uL (0.0-0.2); BASO % 0.8 % (0.0-1.0); EOS # 0.1 10^3/uL (0.0-0.5); EOS % 0.8 % (0.0-3.0); HEMATOCRIT 40.7 % (42.0-52.0); HEMOGLOBIN 14.1 g/dl (13.5-17.5); LYMPH # 1.4 10^3/uL (1.5-5.0); LYMPH % 14.2 % (24.0-44.0); MEAN CORPUSCULAR HEMOGLOBIN 30.5 pg (27.0-33.0); MEAN CORPUSCULAR HGB CONC 34.6 g/dl (32.0-36.5); MEAN CORPUSCULAR VOLUME 87.9 fl (80.0-96.0); MONO # 0.6 10^3/uL (0.0-0.8); MONO % 6.5 % (2.0-8.0); NEUTROPHILS # 7.5 10^3/uL (1.5-8.5); NEUTROPHILS % 75.7 % (36.0-66.0); PLATELET COUNT, AUTOMATED 404 10^3/uL (150-450); RED BLOOD COUNT 4.63 10^6/uL (4.30-6.10); WHITE BLOOD COUNT 9.9 10^3/uL (4.0-10.0)
[2022-07-02 15:59] LABS: ERYTHROCYTE SEDIMENTATION RATE 76 mm/hr (0-20)
[2022-07-02 16:33] LABS: ALBUMIN 2.9 GM/DL (3.2-5.2); ALT/SGPT 17 U/L (12-78); BILIRUBIN,DIRECT 0.2 MG/DL (0.0-0.2); BILIRUBIN,TOTAL 0.6 MG/DL (0.2-1.0); BLOOD UREA NITROGEN 22 MG/DL (7-18); C REACTIVE PROTEIN QUANTITATIV 9.95 MG/DL (0.00-0.30); CALCIUM LEVEL 9.8 MG/DL (8.8-10.2); CARBON DIOXIDE LEVEL 26 MEQ/L (21-32); CHLORIDE LEVEL 96 MEQ/L (98-107); CREATININE FOR GFR 1.11 MG/DL (0.70-1.30); GLOMERULAR FILTRATION RATE > 60.0 (>49); GLUCOSE, FASTING 528 MG/DL (70-100); POTASSIUM SERUM 4.6 MEQ/L (3.5-5.1); SODIUM LEVEL 128 MEQ/L (136-145); TOTAL PROTEIN 7.3 GM/DL (6.4-8.2)
[2022-07-02] MEDS ORDERED: HumuLIN R (REGULAR) INSULIN (NovoLIN R) **100U/ML** PER UNIT IV STA ×2 (17:52→17:55)
[2022-07-02] MEDS ORDERED: GLUCAGON INJ 1MG VIAL SC PRN (17:55)
[2022-07-02] MEDS ORDERED: GLUCOSE 4GM CHEW TABLET PO PRN (17:55)
[2022-07-02] MEDS ORDERED: DEXTROSE 50% 50 ML SYRINGE IV PRN (17:55)
[2022-07-02] MEDS ORDERED: VANCOMYCIN HCL 750 MG, VIAL MATE ADAPTER 1 EACH in D5W 250 ML IV ONE ×2 (19:00→20:00)
[2022-07-02] MEDS ORDERED: ECOT81TA5 PO (19:40)
[2022-07-02] MEDS ORDERED: CARV25TA PO (19:40)
[2022-07-02] MEDS ORDERED: LOSA100T45 PO (19:40)
[2022-07-02] MEDS ORDERED: HOME MED LIST COMPLETE! XX SCH (19:45)
[2022-07-02] MEDS: FUROSEMIDE 40 MG TAB PO SCH ×2 (20:00→20:19)
[2022-07-02] MEDS ORDERED: INSULIN LISPRO (NovoLOG) PER UNIT SC SCH (21:00)
[2022-07-02] MEDS ORDERED: LEVEMIR (INSULIN DETEMIR) 1 UNITS/0.01ML SC SCH (21:00)
[2022-07-02] MEDS: CARVedilol 6.25 MG TAB PO SCH (21:21)
[2022-07-02] MEDS: LEVEMIR (INSULIN DETEMIR) 1 UNITS/0.01ML SC SCH (21:22)
[2022-07-02 23:25] VITALS: BP 148/70
[2022-07-03] MEDS: PIPERACILLIN/TAZOBACTAM SOD 3.375 GM in D5W MINI-BAG PLUS 50 ML IV SCH ×4 (00:14→18:20)
[2022-07-03] MEDS: PERCOCET 5MG/325MG TAB PO PRN ×4 (01:07→20:26)
[2022-07-03] MEDS: VANCOMYCIN HCL 1,000 MG, VIAL MATE ADAPTER 1 EACH in NS 250 ML IV SCH ×3 (02:25→20:22)
[2022-07-03 03:50] VITALS: BP 131/65
[2022-07-03 06:25] LABS: HEMATOCRIT 33.8 % (42.0-52.0); MEAN CORPUSCULAR HEMOGLOBIN 30.7 pg (27.0-33.0); MEAN CORPUSCULAR HGB CONC 34.3 g/dl (32.0-36.5); MEAN CORPUSCULAR VOLUME 89.4 fl (80.0-96.0); PLATELET COUNT, AUTOMATED 362 10^3/uL (150-450); RED BLOOD COUNT 3.78 10^6/uL (4.30-6.10); WHITE BLOOD COUNT 9.7 10^3/uL (4.0-10.0)
[2022-07-03 07:30] LABS: HEMOGLOBIN 11.6 g/dl (13.5-17.5)
[2022-07-03] MEDS ORDERED: INSULIN LISPRO (NovoLOG) PER UNIT SC SCH (07:30)
[2022-07-03 07:31] LABS: ALBUMIN 2.1 GM/DL (3.2-5.2); ALT/SGPT 11 U/L (12-78); BILIRUBIN,TOTAL 0.3 MG/DL (0.2-1.0); BLOOD UREA NITROGEN 15 MG/DL (7-18); CARBON DIOXIDE LEVEL 27 MEQ/L (21-32); CHLORIDE LEVEL 105 MEQ/L (98-107); CREATININE FOR GFR 0.86 MG/DL (0.70-1.30); GLOMERULAR FILTRATION RATE > 60.0 (>49); GLUCOSE, FASTING 204 MG/DL (70-100); POTASSIUM SERUM 3.7 MEQ/L (3.5-5.1); SODIUM LEVEL 137 MEQ/L (136-145)
[2022-07-03 07:50] VITALS: BP 112/55
[2022-07-03] MEDS: INSULIN LISPRO (NovoLOG) PER UNIT SC SCH ×4 (08:00→20:08)
[2022-07-03] MEDS: ATORVASTATIN 20 MG TAB PO SCH (09:36)
[2022-07-03] MEDS: FUROSEMIDE 40 MG TAB PO SCH (09:36)
[2022-07-03] MEDS: FINASTERIDE 5MG TAB PO SCH (09:37)
[2022-07-03] MEDS: CARVedilol 6.25 MG TAB PO SCH ×2 (09:37→20:31)
[2022-07-03 12:00] VITALS: BP 141/64
[2022-07-03] MEDS ORDERED: MIDAZOLAM INJ 2MG/2ML VIAL (J2250 PER 1MG) As Ordered ONE (15:18)
[2022-07-03] MEDS ORDERED: propofoL 200 MG/20 ML VIAL As Ordered ONE (15:18)
[2022-07-03] MEDS ORDERED: fentaNYL 100 MCG/2 ML INJECTION As Ordered ONE (15:18)
[2022-07-03] MEDS ORDERED: BUPIVACAINE HCL 0.5% 30ML VIAL As Ordered ONE (15:59)
[2022-07-03] MEDS ORDERED: LIDOCAINE 1% SDV 30ML VIAL As Ordered ONE (15:59)
[2022-07-03] MEDS ORDERED: MORPHINE 2 MG/ML 1ML VIAL IV PRN (16:10)
[2022-07-03] MEDS ORDERED: ACETAMINOPHEN 1000MG 100ML IV BTL (OFIRMEV) (J0131 PER 10MG) As Ordered ONE (16:33)
[2022-07-03] MEDS ORDERED: HYDROMORPHONE HCL 0.5 MG/ 0.5 ML SYRINGE (J1170 PER 1) IV PRN (16:45)
[2022-07-03] MEDS ORDERED: fentaNYL 100 MCG/2 ML INJECTION IV PRN (16:45)
[2022-07-03] MEDS ORDERED: LR 1,000 ML IV SCH (16:45)
[2022-07-03] MEDS ORDERED: ONDANSETRON 4MG 2ML VIAL IV PRN (16:45)
[2022-07-03] MEDS ORDERED: oxyCODONE 5MG TAB PO PRN (16:45)
[2022-07-03 17:11] VITALS: BP 138/67
[2022-07-03 20:00] VITALS: BP 118/56
[2022-07-03] MEDS: LEVEMIR (INSULIN DETEMIR) 1 UNITS/0.01ML SC SCH (20:22)
[2022-07-04] VITALS: BP 132/88
[2022-07-04] MEDS: PIPERACILLIN/TAZOBACTAM SOD 3.375 GM in D5W MINI-BAG PLUS 50 ML IV SCH ×4 (00:09→17:15)
[2022-07-04] MEDS: VANCOMYCIN HCL 1,000 MG, VIAL MATE ADAPTER 1 EACH in NS 250 ML IV SCH (03:00)
[2022-07-04] MEDS: PERCOCET 5MG/325MG TAB PO PRN ×4 (03:06→22:33)
[2022-07-04 04:00] VITALS: BP 155/76
[2022-07-04 05:44] LABS: HEMATOCRIT 33.2 % (42.0-52.0); HEMOGLOBIN 11.2 g/dl (13.5-17.5); MEAN CORPUSCULAR HEMOGLOBIN 30.7 pg (27.0-33.0); MEAN CORPUSCULAR HGB CONC 33.7 g/dl (32.0-36.5); PLATELET COUNT, AUTOMATED 375 10^3/uL (150-450); RED BLOOD COUNT 3.65 10^6/uL (4.30-6.10); WHITE BLOOD COUNT 11.2 10^3/uL (4.0-10.0)
[2022-07-04 06:23] LABS: BLOOD UREA NITROGEN 11 MG/DL (7-18); CALCIUM LEVEL 8.6 MG/DL (8.8-10.2); CARBON DIOXIDE LEVEL 27 MEQ/L (21-32); CHLORIDE LEVEL 104 MEQ/L (98-107); CREATININE FOR GFR 0.84 MG/DL (0.70-1.30); GLOMERULAR FILTRATION RATE > 60.0 (>49); GLUCOSE, FASTING 168 MG/DL (70-100); POTASSIUM SERUM 3.9 MEQ/L (3.5-5.1); SODIUM LEVEL 136 MEQ/L (136-145)
[2022-07-04 08:16] VITALS: BP_SYST 171; BP_SYST 180; BP_DIAS 88; BP_DIAS 89
[2022-07-04] MEDS: INSULIN LISPRO (NovoLOG) PER UNIT SC SCH ×4 (08:27→22:31)
[2022-07-04] MEDS: FINASTERIDE 5MG TAB PO SCH (08:27)
[2022-07-04] MEDS: CARVedilol 6.25 MG TAB PO SCH ×2 (08:28→22:31)
[2022-07-04] MEDS: ATORVASTATIN 20 MG TAB PO SCH (08:28)
[2022-07-04 12:14] VITALS: BP 149/76
[2022-07-04] MEDS: VANCOMYCIN HCL 1,000 MG, VIAL MATE ADAPTER 1 EACH in D5W 250 ML IV SCH (13:52)
[2022-07-04] MEDS: MIRALAX *UNIT DOSE* 17GM PACKET PO SCH (13:53)
[2022-07-04] MEDS: ASPIRIN 81MG ENTERIC TABLET PO SCH (13:53)
[2022-07-04] MEDS: HEPARIN SOD (PORCINE) 5000UNITS/ML 1ML VIAL/SYRINGE SQ SCH ×2 (13:54→22:30)
[2022-07-04] MEDS: DOCUSATE SODIUM 100MG CAPSULE PO SCH ×2 (13:54→22:31)
[2022-07-04 15:55] VITALS: BP 178/80
[2022-07-04] MEDS: FUROSEMIDE 40 MG TAB PO SCH (17:15)
[2022-07-04 20:00] VITALS: BP 141/68
[2022-07-04] MEDS: LEVEMIR (INSULIN DETEMIR) 1 UNITS/0.01ML SC SCH (22:30)
[2022-07-05] MEDS: PIPERACILLIN/TAZOBACTAM SOD 3.375 GM in D5W MINI-BAG PLUS 50 ML IV SCH ×2 (01:01→05:35)
[2022-07-05 01:07] VITALS: BP 151/72
[2022-07-05] MEDS: VANCOMYCIN HCL 1,000 MG, VIAL MATE ADAPTER 1 EACH in D5W 250 ML IV SCH (02:37)
[2022-07-05 04:14] VITALS: BP 133/65
[2022-07-05] MEDS: HEPARIN SOD (PORCINE) 5000UNITS/ML 1ML VIAL/SYRINGE SQ SCH ×3 (05:34→23:57)
[2022-07-05] MEDS: PERCOCET 5MG/325MG TAB PO PRN ×3 (05:37→23:54)
[2022-07-05 06:49] LABS: HEMOGLOBIN 11.4 g/dl (13.5-17.5); MEAN CORPUSCULAR HEMOGLOBIN 30.5 pg (27.0-33.0); MEAN CORPUSCULAR HGB CONC 33.5 g/dl (32.0-36.5); MEAN CORPUSCULAR VOLUME 90.9 fl (80.0-96.0); PLATELET COUNT, AUTOMATED 410 10^3/uL (150-450); RED BLOOD COUNT 3.74 10^6/uL (4.30-6.10); WHITE BLOOD COUNT 9.2 10^3/uL (4.0-10.0)
[2022-07-05 07:17] LABS: BLOOD UREA NITROGEN 17 MG/DL (7-18); CALCIUM LEVEL 8.9 MG/DL (8.8-10.2); CARBON DIOXIDE LEVEL 28 MEQ/L (21-32); CHLORIDE LEVEL 102 MEQ/L (98-107); CREATININE FOR GFR 1.29 MG/DL (0.70-1.30); GLOMERULAR FILTRATION RATE > 60.0 (>49); GLUCOSE, FASTING 241 MG/DL (70-100); POTASSIUM SERUM 4.1 MEQ/L (3.5-5.1); SODIUM LEVEL 135 MEQ/L (136-145)
[2022-07-05 07:36] VITALS: BP 140/65
[2022-07-05] MEDS: INSULIN LISPRO (NovoLOG) PER UNIT SC SCH ×4 (08:38→23:56)
[2022-07-05] MEDS: LEVEMIR (INSULIN DETEMIR) 1 UNITS/0.01ML SC SCH ×2 (08:39→23:56)
[2022-07-05] MEDS: FINASTERIDE 5MG TAB PO SCH (08:39)
[2022-07-05] MEDS: MIRALAX *UNIT DOSE* 17GM PACKET PO SCH (08:39)
[2022-07-05] MEDS: ASPIRIN 81MG ENTERIC TABLET PO SCH (08:39)
[2022-07-05] MEDS: ATORVASTATIN 20 MG TAB PO SCH (08:41)
[2022-07-05] MEDS: DOCUSATE SODIUM 100MG CAPSULE PO SCH ×2 (08:42→23:54)
[2022-07-05] MEDS: LOSARTAN 50MG TABLET PO SCH (08:43)
[2022-07-05] MEDS: FUROSEMIDE 40 MG TAB PO SCH ×2 (08:44→17:06)
[2022-07-05] MEDS ORDERED: CARVedilol 12.5 MG TAB PO SCH (09:00)
[2022-07-05 12:05] VITALS: BP 180/86
[2022-07-05] MEDS ORDERED: CARVedilol 12.5 MG TAB PO ONE (12:45)
[2022-07-05] MEDS: metroNIDAZOLE (FLAGYL) 500MG TABLET PO SCH ×2 (13:00→23:53)
[2022-07-05 16:36] VITALS: BP 170/86
[2022-07-05] MEDS ORDERED: LevoFLOXacin 750 MG TABLET PO SCH (18:00)
[2022-07-05 19:35] VITALS: BP 174/90
[2022-07-05] MEDS ORDERED: VANCOMYCIN HCL 750 MG, VIAL MATE ADAPTER 1 EACH in D5W 250 ML IV SCH (20:00)
[2022-07-05] MEDS: CARVedilol 12.5 MG TAB PO SCH (23:55)
[2022-07-06] MEDS: VANCOMYCIN HCL 750 MG, VIAL MATE ADAPTER 1 EACH in D5W 250 ML IV SCH ×2 (00:01→12:00)
[2022-07-06 00:10] VITALS: BP 190/98
[2022-07-06] MEDS ORDERED: hydrALAZINE 20MG/ML 1ML VIAL (J0360 PER 20MG) IV ONE (00:30)
[2022-07-06 04:00] VITALS: BP 134/69
[2022-07-06] MEDS: metroNIDAZOLE (FLAGYL) 500MG TABLET PO SCH ×2 (06:06→14:00)
[2022-07-06] MEDS: PERCOCET 5MG/325MG TAB PO PRN ×2 (06:07→10:14)
[2022-07-06] MEDS: HEPARIN SOD (PORCINE) 5000UNITS/ML 1ML VIAL/SYRINGE SQ SCH ×2 (06:08→14:00)
[2022-07-06 07:29] LABS: HEMATOCRIT 36.8 % (42.0-52.0); HEMOGLOBIN 11.2 g/dl (13.5-17.5); MEAN CORPUSCULAR HEMOGLOBIN 31.2 pg (27.0-33.0); MEAN CORPUSCULAR HGB CONC 30.4 g/dl (32.0-36.5); MEAN CORPUSCULAR VOLUME 102.5 fl (80.0-96.0); PLATELET COUNT, AUTOMATED 364 10^3/uL (150-450); RED BLOOD COUNT 3.59 10^6/uL (4.30-6.10); WHITE BLOOD COUNT 10.1 10^3/uL (4.0-10.0)
[2022-07-06 07:31] VITALS: BP 138/71
[2022-07-06 08:13] LABS: BLOOD UREA NITROGEN 21 MG/DL (7-18); CALCIUM LEVEL 9.2 MG/DL (8.8-10.2); CARBON DIOXIDE LEVEL 28 MEQ/L (21-32); CHLORIDE LEVEL 102 MEQ/L (98-107); CREATININE FOR GFR 1.24 MG/DL (0.70-1.30); GLOMERULAR FILTRATION RATE > 60.0 (>49); GLUCOSE, FASTING 138 MG/DL (70-100); POTASSIUM SERUM 4.3 MEQ/L (3.5-5.1); SODIUM LEVEL 136 MEQ/L (136-145)
[2022-07-06] MEDS: LEVEMIR (INSULIN DETEMIR) 1 UNITS/0.01ML SC SCH (08:55)
[2022-07-06] MEDS: INSULIN LISPRO (NovoLOG) PER UNIT SC SCH ×2 (08:55→12:20)
[2022-07-06] MEDS: FINASTERIDE 5MG TAB PO SCH (08:56)
[2022-07-06] MEDS: ASPIRIN 81MG ENTERIC TABLET PO SCH (08:56)
[2022-07-06] MEDS: CARVedilol 12.5 MG TAB PO SCH (08:56)
[2022-07-06] MEDS: DOCUSATE SODIUM 100MG CAPSULE PO SCH (08:56)
[2022-07-06 08:57] VITALS: BP 138/71
[2022-07-06] MEDS: LOSARTAN 50MG TABLET PO SCH (08:57)
[2022-07-06] MEDS: MIRALAX *UNIT DOSE* 17GM PACKET PO SCH (08:58)
[2022-07-06] MEDS: FUROSEMIDE 40 MG TAB PO SCH (08:58)
[2022-07-06] MEDS: ATORVASTATIN 20 MG TAB PO SCH (08:58)
[2022-07-06 11:24] VITALS: BP 129/67
[2022-07-06] MEDS ORDERED: COLA100C5 PO (13:26)
[2022-07-06] MEDS ORDERED: LEVO1TAB40 PO (13:26)
[2022-07-06] MEDS ORDERED: ZYVO1TAB PO (13:26)
[2022-07-06] MEDS ORDERED: PERCOCET PO (13:26)
[2022-07-06] MEDS ORDERED: MIRA1POW3 PO (13:26)
== END 2022-07-06 15:43 | disposition home or self-care (01) | DRG 314 ==
LOC: M ED 13:22 → EEVIPCON 17:43 → M ED INP 17:43 → M PCU 22:06
PROVIDERS: ADMIT Internal Medicine; ATTEND Internal Medicine
PROC: 0Y6U0Z0 Detachment at Left 3rd Toe, Complete, Open Approach (ICD-10-PCS; principal; 2022-07-03 16:00)
DX: E11.69 Type 2 diabetes mellitus with other specified complication (principal); M86.172 Other acute osteomyelitis, left ankle and foot; E11.40 Type 2 diabetes mellitus with diabetic neuropathy, unspecified; I11.0 Hypertensive heart disease with heart failure; I50.32 Chronic diastolic (congestive) heart failure; E11.52 Type 2 diabetes mellitus with diabetic peripheral angiopathy with gangrene; E11.65 Type 2 diabetes mellitus with hyperglycemia; I25.10 Atherosclerotic heart disease of native coronary artery without angina pectoris; L03.032 Cellulitis of left toe; E78.5 Hyperlipidemia, unspecified; N40.0 Benign prostatic hyperplasia without lower urinary tract symptoms; Z95.1 Presence of aortocoronary bypass graft; Z79.4 Long term (current) use of insulin; Z79.82 Long term (current) use of aspirin; Z79.899 Other long term (current) drug therapy

== ENCOUNTER → 2022-07-14 | Outpatient (REF) | payer BC ==
[~2022-07-14] MED LIST changes: +CARV25TA PO; +COLA100C5 PO; +ECOT81TA5 PO; +LEVO1TAB40 PO; +LOSA100T45 PO; +MIRA1POW3 PO; +PERCOCET PO; +ZYVO1TAB PO
[2022-07-14 11:55] LABS: HEMATOCRIT 38.6 % (42.0-52.0); HEMOGLOBIN 12.8 g/dl (13.5-17.5); MEAN CORPUSCULAR HEMOGLOBIN 29.8 pg (27.0-33.0); MEAN CORPUSCULAR HGB CONC 33.2 g/dl (32.0-36.5); PLATELET COUNT, AUTOMATED 708 10^3/uL (150-450); RED BLOOD COUNT 4.29 10^6/uL (4.30-6.10); WHITE BLOOD COUNT 10.1 10^3/uL (4.0-10.0)
[2022-07-14 12:11] LABS: CALCIUM LEVEL 9.7 MG/DL (8.8-10.2); CREATININE FOR GFR 1.64 MG/DL (0.70-1.30); GLOMERULAR FILTRATION RATE 45.8 (>49); POTASSIUM SERUM 4.8 MEQ/L (3.5-5.1)
== END ==
LOC: M LABDRAWC 11:19
PROVIDERS: ATTEND Internal Medicine
DX: M86.9 Osteomyelitis, unspecified (principal)

== ENCOUNTER → 2023-02-18 | Outpatient (REF) | payer BC ==
[~2023-02-18] MED LIST changes: -DOXY-350 PO; +DOXY-444 PO; -LOSA100T45 PO; +LOSA100T46 PO
[2023-02-18 11:49] LABS: BLOOD UREA NITROGEN 20 MG/DL (9-23); CALCIUM LEVEL 9.6 MG/DL (8.3-10.6); CARBON DIOXIDE LEVEL 29 MMOL/L (20-31); CHLORIDE LEVEL 105 MMOL/L (98-107); CREATININE FOR GFR 1.17 MG/DL (0.70-1.30); GLOMERULAR FILTRATION RATE > 60.0 (>49); GLUCOSE, FASTING 246 MG/DL (74-106); POTASSIUM SERUM 5.5 MMOL/L (3.5-5.1); SODIUM LEVEL 140 MMOL/L (136-145)
== END ==
LOC: M LABDRAWC 11:14
PROVIDERS: ATTEND Nurse Practitioner Family
DX: E11.65 Type 2 diabetes mellitus with hyperglycemia (principal)

== ENCOUNTER → 2023-02-22 | Outpatient (REF) | payer BC ==
[2023-02-22 19:38] LABS: CREATININE, URINE 46.9 MG/DL
[2023-02-22 19:50] LABS: MAU/CREAT RATIO 1857.1 MCG/MG (0.0-30.0)
== END ==
LOC: M LAB REF 18:26
PROVIDERS: ATTEND Nurse Practitioner Family
DX: E11.65 Type 2 diabetes mellitus with hyperglycemia (principal)

== ENCOUNTER 2023-12-10 07:03 | Day surgery (SDC) | payer BC ==
[~2023-12-10] VITALS: Ht 162.6 cm; Wt 76.2 kg
[~2023-12-10 07:03] MED LIST changes: -MIRA1POW3 PO; +MIRA33506 PO; +NS 1,000 ML IV ONE; +TRUL0.5I SC
[2023-12-10] MEDS: INSULIN LISPRO (NovoLOG) PER UNIT SC PRN (07:46)
[2023-12-10] MEDS ORDERED: LIDOCAINE 2% 100MG/5ML SDV (FOR ANES.) As Ordered ONE (08:11)
[2023-12-10] MEDS ORDERED: propofoL 500 MG/50 ML VIAL As Ordered ONE (08:11)
[2023-12-10 08:50] VITALS: BP 150/88; TEMP 96.2; O2SAT 97
== END 2023-12-11 09:04 | disposition home or self-care (01) ==
LOC: M OPP 07:03
PROVIDERS: ATTEND Surgery
DX: Z12.11 Encounter for screening for malignant neoplasm of colon (principal); K57.30 Diverticulosis of large intestine without perforation or abscess without bleeding; E10.9 Type 1 diabetes mellitus without complications; E11.9 Type 2 diabetes mellitus without complications; I25.119 Atherosclerotic heart disease of native coronary artery with unspecified angina pectoris; Z95.5 Presence of coronary angioplasty implant and graft; Z86.74 Personal history of sudden cardiac arrest; Z79.02 Long term (current) use of antithrombotics/antiplatelets; Z79.4 Long term (current) use of insulin; Z79.82 Long term (current) use of aspirin; Z79.891 Long term (current) use of opiate analgesic; Z79.899 Other long term (current) drug therapy
CPT/HCPCS: 45378; J1815

== ENCOUNTER → 2024-03-02 | Outpatient (REF) | payer BC ==
[~2024-03-02] MED LIST changes: +DOXY-440 PO; -DOXY-444 PO; -NS 1,000 ML IV ONE
[2024-03-02 12:41] LABS: PROSTATIC SPECIFIC AG MONITOR 1.45 NG/ML (< 4.00)
[2024-03-02 12:45] LABS: THYROID STIMULATING HORMONE 3.805 uIU/ML (0.55-4.78)
[2024-03-02 12:58] LABS: ALBUMIN 2.7 G/DL (3.2-5.2); ALKALINE PHOSPHATASE 86 U/L (46-116); ALT/SGPT 14 U/L (7.0-40); AST/SGOT < 8 U/L (<34); BILIRUBIN,TOTAL 0.4 MG/DL (0.3-1.2); BLOOD UREA NITROGEN 25 MG/DL (9-23); CALCIUM LEVEL 9.6 MG/DL (8.3-10.6); CARBON DIOXIDE LEVEL 30 MMOL/L (20-31); CHLORIDE LEVEL 101 MMOL/L (98-107); CHOLESTEROL LEVEL 148 MG/DL (<200); CREATININE FOR GFR 1.26 MG/DL (0.70-1.30); GLOMERULAR FILTRATION RATE > 60.0 (>49); GLUCOSE, FASTING 442 MG/DL (74-106); HDL CHOLESTEROL 34.4 MG/DL (>40); NON-HDL-C 113.6 MG/DL; POTASSIUM SERUM 5.5 MMOL/L (3.5-5.1); SODIUM LEVEL 135 MMOL/L (136-145); TOTAL PROTEIN 5.8 G/DL (5.7-8.2); TRIGLYCERIDES LEVEL 424 MG/DL (<150)
[2024-03-02 12:59] LABS: HEMOGLOBIN A1c > 14.0 % (4.0-6.0)
== END ==
LOC: M SFHCCLAY 07:21
PROVIDERS: ATTEND Nurse Practitioner Family
DX: I25.10 Atherosclerotic heart disease of native coronary artery without angina pectoris (principal); N40.0 Benign prostatic hyperplasia without lower urinary tract symptoms; E11.8 Type 2 diabetes mellitus with unspecified complications; E78.5 Hyperlipidemia, unspecified; I50.22 Chronic systolic (congestive) heart failure; G56.01 Carpal tunnel syndrome, right upper limb

== ENCOUNTER 2024-07-05 06:07 | Day surgery (SDC) | payer BC ==
[~2024-07-05] VITALS: Ht 162.6 cm; Wt 74.1 kg
[~2024-07-05 06:07] MED LIST changes: +PHENYLEPHRINE 10% OPHTH SOL 5ML OD PRN
[2024-07-05] MEDS: OFLOXACIN 0.3 % (OCUFLOX) OPTH SOL 5ML OD ONE (06:36)
[2024-07-05] MEDS: LIDOCAINE 3.5 % 1ML OPHTH TOPICAL GEL OU ONE (06:37)
[2024-07-05] MEDS: ATROPINE SULFATE 1% OPHTH SOLN 2ML BTL OD SCH (06:37)
[2024-07-05] MEDS: PHENYLEPHRINE 2.5% OPHTH SOL 2ML OD SCH (06:37)
[2024-07-05] MEDS: TROPICAMIDE 1% OPHTH SOLN 15ML OD SCH (06:37)
[2024-07-05] MEDS ORDERED: fentaNYL 100 MCG/2 ML INJECTION As Ordered ONE (07:02)
[2024-07-05] MEDS: INSULIN LISPRO (NovoLOG) PER UNIT SC PRN (07:22)
[2024-07-05] MEDS: BSS IRRIG/VANCO(10MG)/TOBRA(5MG)/EPINEPH(1:1000-0.5CC)500ML BAG-ORONLY As Ordered ONE (07:53)
[2024-07-05] MEDS: LIDOCAINE 1% SDV 5ML VIAL As Ordered ONE (07:53)
[2024-07-05] MEDS: CEFUROXIME 1MG/0.1ML INTRACAMERAL INJ As Ordered ONE (07:53)
[2024-07-05] MEDS ORDERED: LABETALOL 100MG/20ML VIAL As Ordered ONE (07:59)
[2024-07-05 08:04] VITALS: BP 160/100; TEMP 96.7; O2SAT 97
== END 2024-07-05 08:31 | disposition home or self-care (01) ==
LOC: M SDC 06:07
PROVIDERS: ATTEND Ophthalmology
DX: H25.11 Age-related nuclear cataract, right eye (principal); H57.03 Miosis; I25.10 Atherosclerotic heart disease of native coronary artery without angina pectoris; E11.9 Type 2 diabetes mellitus without complications; I25.2 Old myocardial infarction; Z95.5 Presence of coronary angioplasty implant and graft; Z79.899 Other long term (current) drug therapy
CPT/HCPCS: 66982; J0697; J1815; J3010; V2632

== ENCOUNTER 2024-07-19 06:43 | Day surgery (SDC) | payer BC ==
[~2024-07-19] VITALS: Ht 162.6 cm; Wt 76.2 kg
[~2024-07-19 06:43] MED LIST changes: -PHENYLEPHRINE 10% OPHTH SOL 5ML OD PRN; +PHENYLEPHRINE 10% OPHTH SOL 5ML OS PRN
[2024-07-19] MEDS ORDERED: fentaNYL 100 MCG/2 ML INJECTION As Ordered ONE (06:59)
[2024-07-19] MEDS ORDERED: MIDAZOLAM INJ 2MG/2ML VIAL As Ordered ONE (06:59)
[2024-07-19] MEDS: LIDOCAINE 3.5 % 1ML OPHTH TOPICAL GEL OU ONE (07:38)
[2024-07-19] MEDS: OFLOXACIN 0.3 % (OCUFLOX) OPTH SOL 5ML OS ONE (07:38)
[2024-07-19] MEDS: TROPICAMIDE 1% OPHTH SOLN 15ML OS SCH (07:39)
[2024-07-19] MEDS: PHENYLEPHRINE 2.5% OPHTH SOL 2ML OS SCH (07:39)
[2024-07-19] MEDS: ATROPINE SULFATE 1% OPHTH SOLN 2ML BTL OS SCH (07:39)
[2024-07-19] MEDS: LIDOCAINE 1% SDV 5ML VIAL As Ordered ONE (08:37)
[2024-07-19] MEDS: BSS IRRIG/VANCO(10MG)/TOBRA(5MG)/EPINEPH(1:1000-0.5CC)500ML BAG-ORONLY As Ordered ONE (08:37)
[2024-07-19] MEDS: CEFUROXIME 1MG/0.1ML INTRACAMERAL INJ As Ordered ONE (08:37)
[2024-07-19 08:50] VITALS: BP 158/88; TEMP 97.1; O2SAT 97
== END 2024-07-19 09:04 | disposition home or self-care (01) ==
LOC: M SDC 06:43
PROVIDERS: ATTEND Ophthalmology
DX: H25.12 Age-related nuclear cataract, left eye (principal); H57.03 Miosis; E11.9 Type 2 diabetes mellitus without complications; I25.10 Atherosclerotic heart disease of native coronary artery without angina pectoris; I25.2 Old myocardial infarction; Z95.5 Presence of coronary angioplasty implant and graft; Z79.899 Other long term (current) drug therapy; Z98.41 Cataract extraction status, right eye
CPT/HCPCS: 66982; J0697; J2250; J3010; V2632

== ENCOUNTER → 2025-02-19 | Outpatient (CLI) | payer BC ==
[~2025-02-19] MED LIST changes: -PHENYLEPHRINE 10% OPHTH SOL 5ML OS PRN
== END ==
LOC: M WUC 09:28
PROVIDERS: ATTEND Nurse Practitioner Family
DX: R05.9 Cough, unspecified (principal)

== ENCOUNTER 2025-05-11 18:00 | Inpatient (IN) | payer BC ==
[~2025-05-11] VITALS: Ht 162.6 cm; Wt 72.1 kg
[2025-05-11] MEDS: NS (Normal Saline) 0.9% 1,000 ML IV SCH (01:15)
[2025-05-11 18:48] LABS: BASO # 0.1 10^3/uL (0.0-0.2); BASO % 0.8 % (0.0-1.0); EOS # 0.1 10^3/uL (0.0-0.5); EOS % 1.3 % (0.0-3.0); LYMPH # 1.4 10^3/uL (1.5-5.0); LYMPH % 13.4 % (24.0-44.0); MONO # 0.7 10^3/uL (0.0-0.8); MONO % 6.6 % (2.0-8.0); NEUTROPHILS # 7.8 10^3/uL (1.5-8.5); NEUTROPHILS % 77.4 % (36.0-66.0); PLATELET COUNT, AUTOMATED 447 10^3/uL (150-450)
[2025-05-11 18:52] LABS: ERYTHROCYTE SEDIMENTATION RATE 116 mm/hr (0-20)
[2025-05-11 19:10] LABS: C REACTIVE PROTEIN QUANTITATIV 1.88 MG/DL (<1.0)
[2025-05-11 19:12] LABS: CALCIUM LEVEL 8.9 MG/DL (8.3-10.6); CARBON DIOXIDE LEVEL 27.0 MMOL/L (20-31); CHLORIDE LEVEL 93.0 MMOL/L (98-107); CREATININE FOR GFR 1.57 MG/DL (0.70-1.30); GLOMERULAR FILTRATION RATE 49.2 (>49); POTASSIUM SERUM 4.2 MMOL/L (3.5-5.1); SODIUM LEVEL 130.0 MMOL/L (136-145)
[2025-05-11 20:48] LABS: OSMOLALITY SERUM 315.0 MOSM/KG (280-301)
[2025-05-11] MEDS: NS (Normal Saline) 0.9% 1,000 ML IV ONE (21:46)
[2025-05-11] MEDS: HumuLIN R (REGULAR) INSULIN (NovoLIN R) **100 U/ML** PER UNIT IV ONE (21:46)
[2025-05-11] MEDS: VANCOMYCIN HCL 1,500 MG, VIAL MATE ADAPTER 1 EACH in NS 500 ML IV ONE (21:46)
[2025-05-11 21:56] LABS: ACETONE/KETONE 0.09 MMOL/L (0.02-0.27)
[2025-05-11] MEDS ORDERED: FARX1TAB5 PO (22:48)
[2025-05-11] MEDS ORDERED: HOME MED LIST COMPLETE! XX SCH (22:50)
[2025-05-11] MEDS ORDERED: GLUCOSE 4 GM CHEW PO PRN (22:55)
[2025-05-11] MEDS ORDERED: ACETAMINOPHEN 325 MG TAB PO PRN (22:55)
[2025-05-11] MEDS ORDERED: MOM 30 ML SUSPENSION UDC PO PRN (22:55)
[2025-05-11] MEDS ORDERED: GLUCAGON INJ 1 MG VIAL SC PRN (22:55)
[2025-05-11] MEDS ORDERED: DEXTROSE 50% 50 ML SYRINGE IV PRN (22:55)
[2025-05-12 00:05] LABS: CALCIUM LEVEL 9.1 MG/DL (8.3-10.6); CARBON DIOXIDE LEVEL 28.0 MMOL/L (20-31); CHLORIDE LEVEL 101.0 MMOL/L (98-107); CREATININE FOR GFR 1.47 MG/DL (0.70-1.30); GLOMERULAR FILTRATION RATE 53.3 (>49); POTASSIUM SERUM 4.1 MMOL/L (3.5-5.1); SODIUM LEVEL 138.0 MMOL/L (136-145)
[2025-05-12] MEDS: INSULIN LISPRO (NovoLOG) PER UNIT SC SCH ×3 (00:16→09:02)
[2025-05-12 01:08] VITALS: BP 160/91; TEMP 97.7; O2SAT 98
[2025-05-12] MEDS: LanTUS (INSULIN GLARGINE INJ) 1 UNITS/0.01 ML SC SCH ×2 (01:56→21:26)
[2025-05-12] MEDS: PIPERACILLIN/TAZOBACTAM SOD 3.375 GM in DEXTROSE 5% (D5W) ADV/MINI-BAG 50 ML IV SCH (02:00)
[2025-05-12 03:19] VITALS: BP 127/79; TEMP 97.9; O2SAT 96
[2025-05-12] MEDS: VANCOMYCIN HCL 1,000 MG, VIAL MATE ADAPTER 1 EACH in NS 250 ML IV SCH (05:41)
[2025-05-12 07:08] LABS: BASO # 0.1 10^3/uL (0.0-0.2); BASO % 0.7 % (0.0-1.0); EOS # 0.3 10^3/uL (0.0-0.5); EOS % 2.9 % (0.0-3.0); LYMPH # 1.4 10^3/uL (1.5-5.0); LYMPH % 16.2 % (24.0-44.0); MONO # 0.8 10^3/uL (0.0-0.8); MONO % 9.3 % (2.0-8.0); NEUTROPHILS # 6.0 10^3/uL (1.5-8.5); NEUTROPHILS % 70.7 % (36.0-66.0); PLATELET COUNT, AUTOMATED 404 10^3/uL (150-450)
[2025-05-12 07:30] LABS: ALT/SGPT 11.0 U/L (7.0-40); AST/SGOT 13.0 U/L (<34); CALCIUM LEVEL 8.4 MG/DL (8.3-10.6); CARBON DIOXIDE LEVEL 26.0 MMOL/L (20-31); CHLORIDE LEVEL 105.0 MMOL/L (98-107); CREATININE FOR GFR 1.41 MG/DL (0.70-1.30); GLOMERULAR FILTRATION RATE 56.0 (>49); MAGNESIUM LEVEL 2.0 MG/DL (1.8-2.4); POTASSIUM SERUM 3.9 MMOL/L (3.5-5.1); SODIUM LEVEL 139.0 MMOL/L (136-145)
[2025-05-12] MEDS ORDERED: INSULIN LISPRO (NovoLOG) PER UNIT SC SCH (08:00)
[2025-05-12] MEDS: PANTOPRAZOLE 40MG VIAL IV SCH (09:02)
[2025-05-12] MEDS: DOCUSATE SODIUM 100 MG CAPSULE PO SCH (09:02)
[2025-05-12] MEDS: HEPARIN SOD 5000 UNITS/ML 1 ML VIAL/SYRINGE SC SCH (09:02)
[2025-05-12] MEDS: ATORVASTATIN 20 MG TAB PO SCH (09:03)
[2025-05-12] MEDS: TAMSULOSIN 0.4 MG CAP PO SCH (09:03)
[2025-05-12] MEDS: ASPIRIN 81 MG ENTERIC TABLET PO SCH (09:03)
[2025-05-12] MEDS: FINASTERIDE 5 MG TAB PO SCH (09:03)
[2025-05-12 12:00] VITALS: BP 128/71; TEMP 98.1; O2SAT 96
[2025-05-12 20:00] VITALS: BP 128/71; TEMP 98.1; O2SAT 96
[2025-05-12 20:12] VITALS: BP 155/78; TEMP 97.7; O2SAT 93
[2025-05-13 03:57] VITALS: BP 116/69; TEMP 98.8; O2SAT 94
[2025-05-13 06:05] LABS: VANCOMYCIN LEVEL TROUGH 24.6 UG/ML (10.0-20.0)
[2025-05-13] MEDS ORDERED: VANCOMYCIN INTERMITTENT/PULSE DOSING BY CLINICAL PHARMACIST PER DOSING PROTOCOL XX SCH (07:45)
[2025-05-13 07:46] LABS: CALCIUM LEVEL 8.5 MG/DL (8.3-10.6); CARBON DIOXIDE LEVEL 23.0 MMOL/L (20-31); CHLORIDE LEVEL 111.0 MMOL/L (98-107); CREATININE FOR GFR 1.78 MG/DL (0.70-1.30); GLOMERULAR FILTRATION RATE 42.3 (>49); MAGNESIUM LEVEL 2.0 MG/DL (1.8-2.4); POTASSIUM SERUM 4.4 MMOL/L (3.5-5.1); SODIUM LEVEL 143.0 MMOL/L (136-145)
[2025-05-13 12:00] VITALS: BP 149/79; TEMP 97.7; O2SAT 96
[2025-05-13] MEDS: cefTRIAXone SOD 2 GM in DEXTROSE 5% (D5W) ADV/MINI-BAG 50 ML IV SCH (12:11)
[2025-05-13] MEDS: DOXYCYCLINE HYCLATE 100 MG TABLET PO SCH (12:11)
[2025-05-13 19:46] VITALS: BP 154/90; TEMP 97.9; O2SAT 95
[2025-05-14 04:53] VITALS: BP 151/90; TEMP 97.9; O2SAT 95
[2025-05-14 08:03] LABS: CALCIUM LEVEL 9.3 MG/DL (8.3-10.6); CARBON DIOXIDE LEVEL 22.0 MMOL/L (20-31); CHLORIDE LEVEL 108.0 MMOL/L (98-107); CREATININE FOR GFR 1.5 MG/DL (0.70-1.30); GLOMERULAR FILTRATION RATE 52.0 (>49); MAGNESIUM LEVEL 2.0 MG/DL (1.8-2.4); POTASSIUM SERUM 4.7 MMOL/L (3.5-5.1); SODIUM LEVEL 141.0 MMOL/L (136-145)
[2025-05-14 12:00] VITALS: BP 113/66; TEMP 97.5; O2SAT 96
[2025-05-14 19:40] VITALS: BP 157/90; TEMP 97.7; O2SAT 95
[2025-05-15 04:00] VITALS: BP 156/91; TEMP 97.7; O2SAT 93
[2025-05-15 06:53] LABS: CALCIUM LEVEL 9.3 MG/DL (8.3-10.6); CARBON DIOXIDE LEVEL 22.0 MMOL/L (20-31); CHLORIDE LEVEL 108.0 MMOL/L (98-107); CREATININE FOR GFR 1.41 MG/DL (0.70-1.30); GLOMERULAR FILTRATION RATE 56.0 (>49); MAGNESIUM LEVEL 1.8 MG/DL (1.8-2.4); POTASSIUM SERUM 4.3 MMOL/L (3.5-5.1); SODIUM LEVEL 140.0 MMOL/L (136-145)
[2025-05-15 09:04] VITALS: BP 155/96
[2025-05-15 12:00] VITALS: BP 143/82; TEMP 97.7; O2SAT 99
[2025-05-15] MEDS ORDERED: FURO40TA2 PO (13:25)
[2025-05-15] MEDS ORDERED: LOSA100T46 PO (13:25)
[2025-05-15] MEDS ORDERED: PROBCAP14 PO (13:28)
[2025-05-15] MEDS ORDERED: DOXY100T PO (13:28)
[2025-05-15] MEDS ORDERED: CEFD300CAP PO (13:28)
== END 2025-05-15 14:55 | disposition home or self-care (01) | DRG 344 ==
LOC: M ED 18:00 → EEVIPCON 23:57 → M ED INP 23:57 → M MSPAV 05-12 00:59
PROVIDERS: ADMIT Student in an Organized Health Care Education/Training Program; ATTEND Student in an Organized Health Care Education/Training Program
DX: E11.69 Type 2 diabetes mellitus with other specified complication (principal); N17.9 Acute kidney failure, unspecified; E11.621 Type 2 diabetes mellitus with foot ulcer; M86.8X7 Other osteomyelitis, ankle and foot; I11.0 Hypertensive heart disease with heart failure; E11.65 Type 2 diabetes mellitus with hyperglycemia; I50.9 Heart failure, unspecified; E87.1 Hypo-osmolality and hyponatremia; E86.0 Dehydration; I25.10 Atherosclerotic heart disease of native coronary artery without angina pectoris; S90.852A Superficial foreign body, left foot, initial encounter; B95.62 Methicillin resistant Staphylococcus aureus infection as the cause of diseases classified elsewhere; E78.5 Hyperlipidemia, unspecified; L97.528 Non-pressure chronic ulcer of other part of left foot with other specified severity; Z89.422 Acquired absence of other left toe(s); Z86.14 Personal history of Methicillin resistant Staphylococcus aureus infection; Z79.82 Long term (current) use of aspirin; Z95.5 Presence of coronary angioplasty implant and graft; Z79.4 Long term (current) use of insulin; Z79.899 Other long term (current) drug therapy; X58.XXXA Exposure to other specified factors, initial encounter; Y92.9 Unspecified place or not applicable; Y93.9 Activity, unspecified; Y99.9 Unspecified external cause status

== ENCOUNTER → 2025-05-18 | Outpatient (REF) | payer BC ==
[~2025-05-18] MED LIST changes: +DOXY100T PO; +FARX1TAB5 PO; +PROBCAP14 PO
[2025-05-18 12:40] LABS: CALCIUM LEVEL 9.6 MG/DL (8.3-10.6); CARBON DIOXIDE LEVEL 24.0 MMOL/L (20-31); CHLORIDE LEVEL 109.0 MMOL/L (98-107); CREATININE FOR GFR 1.55 MG/DL (0.70-1.30); GLOMERULAR FILTRATION RATE 50.0 (>49); POTASSIUM SERUM 5.2 MMOL/L (3.5-5.1); SODIUM LEVEL 143.0 MMOL/L (136-145)
== END ==
LOC: M LABDRAWC 12:09
PROVIDERS: ATTEND Student in an Organized Health Care Education/Training Program
DX: N17.9 Acute kidney failure, unspecified (principal)

== ENCOUNTER → 2025-05-25 | Outpatient (REF) | payer BC ==
[2025-05-25 12:26] LABS: ALT/SGPT 36.0 U/L (7.0-40); AST/SGOT 27.0 U/L (<34); CALCIUM LEVEL 9.2 MG/DL (8.3-10.6); CARBON DIOXIDE LEVEL 28.0 MMOL/L (20-31); CHLORIDE LEVEL 105.0 MMOL/L (98-107); CREATININE FOR GFR 1.63 MG/DL (0.70-1.30); GLOMERULAR FILTRATION RATE 47.1 (>49); POTASSIUM SERUM 4.1 MMOL/L (3.5-5.1); SODIUM LEVEL 143.0 MMOL/L (136-145)
== END ==
LOC: M SFHCCLAY 07:18
PROVIDERS: ATTEND Physician Assistant
DX: N17.9 Acute kidney failure, unspecified (principal)

== ENCOUNTER → 2025-07-03 | Outpatient (REF) | payer BC ==
[2025-07-03 18:26] LABS: BASO # 0.1 10^3/uL (0.0-0.2); BASO % 1.5 % (0.0-1.0); EOS # 0.2 10^3/uL (0.0-0.5); EOS % 3.0 % (0.0-3.0); LYMPH # 1.0 10^3/uL (1.5-5.0); LYMPH % 18.0 % (24.0-44.0); MONO # 0.4 10^3/uL (0.0-0.8); MONO % 7.9 % (2.0-8.0); NEUTROPHILS # 3.7 10^3/uL (1.5-8.5); NEUTROPHILS % 69.4 % (36.0-66.0); PLATELET COUNT, AUTOMATED 391 10^3/uL (150-450)
[2025-07-03 18:28] LABS: ALT/SGPT 23.0 U/L (7.0-40); AST/SGOT 20.0 U/L (<34); CALCIUM LEVEL 9.4 MG/DL (8.3-10.6); CARBON DIOXIDE LEVEL 28.0 MMOL/L (20-31); CHLORIDE LEVEL 100.0 MMOL/L (98-107); CHOLESTEROL LEVEL 116.0 MG/DL (<200); CHOLESTEROL RISK RATIO 3.38 (<5); CREATININE FOR GFR 1.45 MG/DL (0.70-1.30); GLOMERULAR FILTRATION RATE 54.2 (>49); LDL CHOLESTEROL 47.9 MG/DL (<100); NON-HDL-C 81.7 MG/DL; POTASSIUM SERUM 4.8 MMOL/L (3.5-5.1); SODIUM LEVEL 134.0 MMOL/L (136-145); TRIGLYCERIDES LEVEL 169.0 MG/DL (<150)
[2025-07-03 18:30] LABS: FREE T4 1.0 NG/DL (0.89-1.76)
[2025-07-03 18:52] LABS: ESTIMATED AVERAGE GLUCOSE 344.0 MG/DL (60-110)
== END ==
LOC: M SFHCCLAY 13:55
PROVIDERS: ATTEND Nurse Practitioner Family
DX: I25.10 Atherosclerotic heart disease of native coronary artery without angina pectoris (principal); M86.9 Osteomyelitis, unspecified; E11.8 Type 2 diabetes mellitus with unspecified complications; R60.0 Localized edema; Z79.4 Long term (current) use of insulin; N40.0 Benign prostatic hyperplasia without lower urinary tract symptoms; E78.5 Hyperlipidemia, unspecified; I50.22 Chronic systolic (congestive) heart failure; N52.9 Male erectile dysfunction, unspecified

== ENCOUNTER → 2025-08-21 | Outpatient (REF) | payer BC ==
[2025-08-21 17:36] LABS: TOTAL PROTEIN,RANDOM URINE 156.2 MG/DL (0.0-14.0)
== END ==
LOC: M LAB REF 16:38
PROVIDERS: ATTEND Student in an Organized Health Care Education/Training Program
DX: E11.21 Type 2 diabetes mellitus with diabetic nephropathy (principal); R80.9 Proteinuria, unspecified

== ENCOUNTER → 2025-08-28 | Outpatient (CLI) | payer BC | LOC: M PLAIMG 08:04 | PROVIDERS: ATTEND Otolaryngology | DX: J38.01 Paralysis of vocal cords and larynx, unilateral (principal) ==

== ENCOUNTER → 2025-09-04 | Outpatient (CLI) | payer BC ==
[~2025-09-04] MED LIST changes: +BARIUM SULFATE 700 MG TABLET As Ordered ONE; +E-Z-PAQUE 96% w/w SUSP 176 GM BTL As Ordered ONE; +VARIBAR NECTAR 40% w/v 240ML SUSP BTL As Ordered ONE; +VARIBAR PUDDING 40% w/v 230ML TUBE As Ordered ONE
== END ==
LOC: M RAD 10:17
PROVIDERS: ATTEND Otolaryngology
DX: R13.19 Other dysphagia (principal)

== ENCOUNTER → 2025-09-13 | Outpatient (REF) | payer BC ==
[~2025-09-13] MED LIST changes: -BARIUM SULFATE 700 MG TABLET As Ordered ONE; -E-Z-PAQUE 96% w/w SUSP 176 GM BTL As Ordered ONE; -VARIBAR NECTAR 40% w/v 240ML SUSP BTL As Ordered ONE; -VARIBAR PUDDING 40% w/v 230ML TUBE As Ordered ONE
[2025-09-13 14:28] LABS: CREATININE FOR GFR 2.01 MG/DL (0.70-1.30); GLOMERULAR FILTRATION RATE 36.6 (>49)
== END ==
LOC: M LABDRAWC 12:21
PROVIDERS: ATTEND Otolaryngology
DX: J38.01 Paralysis of vocal cords and larynx, unilateral (principal)

== ENCOUNTER → 2025-09-14 | Outpatient (CLI) | payer BC ==
[~2025-09-14] MED LIST changes: +ISOVUE-370 76% 100 ML VIAL As Ordered ONE
== END ==
LOC: M RAD 07:09
PROVIDERS: ATTEND Otolaryngology
DX: J38.01 Paralysis of vocal cords and larynx, unilateral (principal)
CPT/HCPCS: 71260; 76775; Q9967